=== PATIENT | female | born 1950 | race Caucasian/White ===

== ENCOUNTER 2016-12-12 11:20 | Outpatient (CLI) | payer MEDICARE, OTHER ==
--- NOTE | 2016-12-12 15:55 | Ultrasound Report ---
LEFT BREAST ULTRASOUND: 12/12/2016 CLINICAL INDICATION: Pain, palpable abnormality. TECHNIQUE: Real-time scanning was performed with community service representative static images obtained. FINDINGS: Ultrasound of the palpable region identified by the patient was performed. Prominent subareolar ducts are noted. Skin thickening and diffuse edema is present. No discrete solid mass is identified. IMPRESSION: FINDINGS COMPATIBLE WITH MASTITIS. NO EVIDENT DISCRETE MASS. RECOMMENDATION: FOLLOWUP FOLLOWING APPROPRIATE ANTIBIOTIC THERAPY, TO EXCLUDE AN UNDERLYING LESION. BIRADS CATEGORY 3-PROBABLE BENIGN FINDINGS. JOB #: [id number] EXT JOB #:[id number]
--- NOTE | 2016-12-12 16:40 | Mammography Report ---
DIGITAL DIAGNOSTIC BILATERAL MAMMOGRAM: 12/12/2016 CLINICAL INDICATION: Palpable abnormality left breast, redness, pain. COMPARISON: 08/20/2012, 03/08/2011, , 01/18/2006. TECHNIQUE: Bilateral CC and MLO views, left true lateral view. A marker was placed at the site of pal pable abnormality identified by the patient in the left lower inner breast. FINDINGS: The breasts demonstrate scattered fibroglandular densities bilaterally. Punctate, typicall y benign calcifications are present. Biopsy marker in the left lower inner breast is stable. There is diffuse skin thickening and parenchymal edema in the left breast, compatible with mastitis. No defin ite mammographic abnormality is appreciated at the site of palpable abnormality indicated by the odilon er. Please also refer to left breast ultrasound of the same day. IMPRESSION: SKIN THICKENING AND EDEMA, COMPATIBLE WITH MASTITIS. RECOMMENDATION: FOLLOWUP EVALUATION OF THE LEFT BREAST FOLLOWING APPROPRIATE ANTIBIOTIC THERAPY, TO E XCLUDE AN UNDERLYING MASS LESION. BIRADS CATEGORY 3-PROBABLE BENIGN FINDINGS. STANDARD QUALIFYING STATEMENTS 1. This examination was reviewed with the aid of Computer-Aided Detection (CAD). 2. A negative or benign imaging report should not delay biopsy if clinically suspicious findings are present. Consider surgical consultation if warranted. More than 5% of cancers are not identified by i maging. 3. Dense breasts may obscure an underlying neoplasm. JOB #: [id number] EXT JOB #:[id number]
== END 2016-12-12 11:21 | disposition home or self-care (01) ==
LOC: DI 11:20
PROVIDERS: ATTEND Registered Nurse
DX: N63 Unspecified lump in breast (principal); N64.52 Nipple discharge; N64.4 Mastodynia
CPT/HCPCS: 76642; G0204; 77066

== ENCOUNTER 2017-01-11 18:42 | Emergency (ER) | payer MEDICARE ==
[2017-01-11 18:49] VITALS: BP 165/98
--- NOTE | 2017-01-11 20:48 | ED Physician Documentation ---
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, not related too exertion etc 2) floaters in R vision X 5 days already has an appt with ophtho in another 5 days for same, vision is chronically blurry, she did not bring her glasses so states she cannot do visual acuity no COPPOLA diff speaking hearing numbness weakness etc Review of Systems Constitutional: denies: Fever, Chills Eyes: reports: Other (floaters) Cardiac: denies: Chest pain / pressure Respiratory: denies: Dyspnea GI: denies: Abdominal Pain Endocrine: denies: Easy bruising / bleeding Immunocompromised: denies: Immunocompromised PD PAST MEDICAL HISTORY - Past Medical History Past Medical History: Yes HEENT: Chronic vision loss - Allergies Allergies/Adverse Reactions: Allergies Allergy/AdvReac Type Severity Reaction Status Date / Time No Known Drug Allergies Allergy Verified 01/11/17 18:49 - Social History Does the pt smoke?: No Smoking Status: Never smoker PD ED PE NORMAL - Vitals Vital signs reviewed: Yes - General General: Alert and oriented X 3 - HEENT HEENT: PERRL, EOMI, Other (no field cut, no retinal tear or hemorrhage seen on non dilated fundoscopic exam, globes soft, no TA TTP) - Neck Neck: Supple, no meningeal sign - Cardiac Cardiac: RRR - Respiratory Respiratory: No respiratory distress, Clear bilaterally - Extremities Extremities: Other (mod dilated superifcial veins to alonso upper ext in a thin pt , no limb edema or discoloration, brisk cap refill alonso) - Neuro Neuro: Alert and oriented X 3, tip cutter 2-12 intact, No motor deficit, No sensory deficit Results - Vitals Vitals: Vital Signs - 24 hr 01/11/17 18:46 Temperature 36.3 C L Heart Rate 66 Respiratory 18 Rate Blood Pressure 165/98 H O2 Saturation 98 Oxygen O2 Source Room air PD MEDICAL DECISION MAKING - ED course ED course: veins seems better upon eval - possibly related to pts high BP today suspect floaters are vitreous hemorrhage but emphasized need for full ophtho exam pt verbalized understanding but did not want to wait for BP to be rechceked or dc paper to be printed Departure - Departure Disposition: Home, Self Care Clinical Impression: Vitreous floaters of right eye High blood pressure Qualifiers: Hypertension type: essential hypertension Qualified Code(s): I10 - Essential ( primary) hypertension Condition: Good Instructions: ED Hypertension Poss, Flashes and Floaters Comments: Please follow up with the eye doctor for a full dilated eye exam Return to the ER for worsening vision Also please have your blood pressure rechecked - it was high today
== END 2017-01-11 20:56 | disposition home or self-care (01) ==
LOC: ED 18:42
DX: H43.391 Other vitreous opacities, right eye (principal); R03.0 Elevated blood-pressure reading, without diagnosis of hypertension; H54.7 Unspecified visual loss
CPT/HCPCS: 99283

== ENCOUNTER 2017-09-21 10:20 | Outpatient (CLI) | payer MEDICARE ==
--- NOTE | 2017-09-21 12:59 | Ultrasound Report ---
RIGHT UPPER QUADRANT ULTRASOUND: 09/21/2017 CLINICAL INDICATION: Liver firmness. COMPARISON: Images of the upper abdomen of chest CT of the same day. TECHNIQUE: Real-time scanning was performed with customer counter representative static images obtained. FINDINGS: The liver measures 16 cm. Hepatic echotexture is markedly heterogeneous. No intrahepatic biliary dilatation is seen, and the common bile duct measures 6 mm. The gallbladder is elongated, measuring 13.6 cm. No cholelithiasis is seen. The right kidney measures 9.6 cm, and demonstrates no hydronephrosis. No free fluid is present. IMPRESSION: MARKEDLY HETEROGENEOUS LIVER, WITH SIMILAR FINDINGS ON NONCONTRAST CT OF THE SAME DAY. CONSIDER LIVER MRI FOR FURTHER EVALUATION. TD: 09/21/2017 12:58
--- NOTE | 2017-09-21 13:41 | CT Report ---
CT CHEST WITHOUT CONTRAST FOR LUNG CANCER SCREENIN09/21/2017 CLINICAL INDICATION: A 67-year-old asymptomatic patient with [id number] history of smoking, current smoker, past diagnosis of sarcoidosis. TECHNIQUE: Axial CT images of the chest were obtained without intravenous contrast, using low dose screening technique. COMPARISON: No previous CT is available for comparison. FINDINGS: The heart and great vessels demonstrate mild atherosclerotic calcification. There is hilar and mediastinal lymphadenopathy, with pretracheal nodes measuring up to 13 mm short axis. Some lymph nodes do demonstrate calcification, but others do not. There is a suspicious spiculated nodule in the posterior right upper lobe, measuring 2.0 x 1.2 x 2.9 cm. Underlying emphysematous changes and bronchiectasis are noted. Basilar fibrosis is present. Limited evaluation of upper abdominal structures demonstrates normal adrenal glands. Marked heterogeneity of the liver is noted. Consider liver MRI for further evaluation, given the appearance on ultrasound of the same day. Osseous structures demonstrate degenerative changes. IMPRESSION: 1. 2.9 CM RIGHT UPPER LOBE NODULE WITH SPICULATED MARGINS. CORRELATION WITH PATHOLOGY IS RECOMMENDED. 2. MEDIASTINAL ADENOPATHY, SOME WITH CALCIFICATIONS, BUT THE POSSIBILITY OF METASTATIC DISEASE CANNOT BE EXCLUDED. 3. MARKEDLY HETEROGENEOUS LIVER. GIVEN THE FINDINGS ON ULTRASOUND OF THE SAME DAY, CONSIDER LIVER MRI FOR FURTHER EVALUATION. LUNG RADS CATEGORY 4B, TISSUE SAMPLING AND ADDITIONAL DIAGNOSTIC TESTING RECOMMENDED. CT DOSE REDUCTION STATEMENT In accordance with CT protocol optimization, one or more of the following dose reduction techniques were utilized for this exam: automated exposure control, adjustment of mA and/or KV based on patient size, or use of iterative reconstructive technique. TD: 09/21/2017 13:40
== END 2017-09-21 10:21 | disposition home or self-care (01) ==
LOC: DI 10:20
PROVIDERS: ATTEND Physician Assistant
DX: R19.8 Other specified symptoms and signs involving the digestive system and abdomen (principal); D86.0 Sarcoidosis of lung; F17.200 Nicotine dependence, unspecified, uncomplicated; R91.1 Solitary pulmonary nodule
CPT/HCPCS: 76705; G0297

== ENCOUNTER 2017-10-12 12:59 | Outpatient (CLI) | payer MEDICARE ==
[2017-10-12] MEDS ORDERED: IOPAMIDOL-300 100 ML VIAL ONE (13:19)
[2017-10-12] MEDS ORDERED: IOPAMIDOL-300 50 ML VIAL ONE (13:19)
[2017-10-12 14:18] LABS: CREATININE 0.6 mg/dL (0.4-1.0)
[2017-10-12] MEDS ORDERED: IOPAMIDOL-300 50 ML VIAL PO ONE (14:39)
[2017-10-12] MEDS ORDERED: IOPAMIDOL-300 100 ML VIAL IVP ONE (14:39)
--- NOTE | 2017-10-12 17:40 | CT Report ---
CT CHEST WITH CONTRAST: 10/12/2017 CLINICAL INDICATION: Spiculated lung mass. TECHNIQUE: Axial CT images of the chest were obtained with 100 mL Isovue 300 intravenously. In accordance with CT protocol optimization, one or more of the following dose reduction techniques were utilized for this exam: Automated exposure control, adjustment of mA and/or KV based on patient size, or use of iterative reconstructive technique. COMPARISON: Low dose screening chest CT of 09/21/2017. FINDINGS: The heart and great vessels demonstrate atherosclerotic calcifications. Mediastinal lymphadenopathy persists. No axillary adenopathy is seen. The spiculated mass in the right lateral upper lobe is unchanged, measuring 2.9 x 1.8 x 1.2 cm. No new pulmonary lesion is appreciated. Minimal emphysema is present. No effusion or pneumothorax is seen. Osseous structures demonstrate degenerative changes. IMPRESSION: PERSISTENT SPICULATED MASS IN THE RIGHT UPPER LOBE, SUSPICIOUS FOR PRIMARY MALIGNANCY, WITH MEDIASTINAL ADENOPATHY. BIOPSY IS RECOMMENDED. TD: 10/12/2017 15:39 [facility]
--- NOTE | 2017-10-12 17:42 | CT Report ---
CT ABDOMEN AND PELVIS WITH CONTRAST: 10/12/2017 CLINICAL INDICATION: Abnormal liver on ultrasound. TECHNIQUE: Axial CT images of the abdomen and pelvis were obtained with 100 mL Isovue 300 intravenously as well as oral contrast. In accordance with CT protocol optimization, one or more of the following dose reduction techniques were utilized for this exam: Automated exposure control, adjustment of mA and/or KV based on patient size, or use of iterative reconstructive technique. COMPARISON: Ultrasound 09/21/2017. FINDINGS: The liver again demonstrates a large area of decreased attenuation, with focal increased attenuation in the anterior left lobe. This may represent fatty infiltration with focal fatty sparing, but liver MRI would provide better characterization. The spleen, pancreas, kidneys and adrenal glands are unremarkable. The gallbladder is not dilated. No bowel dilatation, free gas, or free fluid is present. No abdominal adenopathy is seen. PELVIS: The pelvic organs appear unremarkable. No pelvic adenopathy or free fluid is present. Osseous structures demonstrate degenerative changes. IMPRESSION: MARKEDLY HETEROGENEOUS ATTENUATION OF THE LIVER, WHICH MAY REPRESENT DIFFUSE FATTY INFILTRATION WITH FOCAL FATTY SPARING, BUT LIVER MRI WOULD PROVIDE BETTER CHARACTERIZATION. TD: 10/12/2017 15:42
== END 2017-10-12 13:00 | disposition home or self-care (01) ==
LOC: LAB 12:59
PROVIDERS: ATTEND Physician Assistant
DX: R93.2 Abnormal findings on diagnostic imaging of liver and biliary tract (principal); D86.0 Sarcoidosis of lung; R59.0 Localized enlarged lymph nodes; R19.09 Other intra-abdominal and pelvic swelling, mass and lump
CPT/HCPCS: 36415; 71260; 74177; 82565; Q9967

== ENCOUNTER 2018-09-07 12:35 | Outpatient (CLI) | payer MEDICARE ==
[2018-09-07] MEDS ORDERED: IOVERSOL 320 100 ML VIAL IVP ONE (13:28)
[2018-09-07 14:00] LABS: BASOPHILS % (AUTO) 1.3 %; EOSINOPHILS % (AUTO) 1.6 %; HGB - HEMOGLOBIN 15.5 g/dL (12.0-16.0); LYMPHOCYTES % (AUTO) 32.1 %; MEAN CORPUSCULAR HEMOGLOBIN 35.2 pg (27.0-31.0); MEAN CORPUSCULAR HGB CONC 33.8 g/dL (32.0-36.0); MEAN CORPUSCULAR VOLUME 104.1 fL (81.0-99.0); MONOCYTES % (AUTO) 9.6 %; NEUTROPHILS % (AUTO) 55.4 %; PLT - PLATELET COUNT 214 10^3/uL (130-450); RED CELL DISTRIBUTION WIDTH 13.4 % (12.0-15.0); WHITE BLOOD COUNT 5.1 x10^3/uL (4.8-10.8)
[2018-09-07 14:04] LABS: ABNORMAL LYMPHS % (MANUAL) 0 %; BAND NEUTROPHILS % (MANUAL) 0 %
[2018-09-07 14:33] LABS: BASOPHILS # (MANUAL) 0.1 10^3/uL (0-0.1); BASOPHILS % (MANUAL) 1 %; EOSINOPHILS # (MANUAL) 0.1 10^3/uL (0-0.7); LYMPHOCYTES # (MANUAL) 1.9 10^3/uL (1.5-3.5); LYMPHOCYTES % (MANUAL) 32 %; MONOCYTES # (MANUAL) 0.5 10^3/uL (0.0-1.0); NEUTROPHILS # (MANUAL) 2.6 10^3/uL (1.5-6.6); NEUTROPHILS % (MANUAL) 50 %
[2018-09-07 14:34] LABS: DIFFERENTIAL COMMENT MANUAL DIFFERENTIAL; PLATELET ESTIMATE, MANUAL NORMAL (130-450,000) (NORMAL); PLATELET MORPHOLOGY NORMAL APPEARANCE (NORMAL); RBC MORPHOLOGY (MULTIPLE) 1+ MACROCYTOSIS (NORMAL)
== END 2018-09-07 12:36 | disposition home or self-care (01) ==
LOC: DI 12:35
PROVIDERS: ATTEND Physician Assistant
DX: R51 Headache (principal)
CPT/HCPCS: 36415; 85025

== ENCOUNTER 2018-11-26 12:24 | Outpatient (CLI) | payer MEDICARE ==
--- NOTE | 2018-11-26 17:05 | Mammography Report ---
Reason: ABNORMAL MAMMOGRAM Procedure Date: 11/26/2018 Accession Number: [id number] / [id number] Procedure: EDDIE - Diagnostic Dig Bilat CPT Code: FULL RESULT: EXAM: Diagnostic Dig Bilat DATE: 11/26/2018 2:24 PM CLINICAL HISTORY: Diagnostic examination. The patient presents for follow-up of previously noted skin thickening and increased density of the left breast in the setting of clinical mastitis in 2017. TECHNIQUE: (B) - Bilateral CC and MLO views were obtained. COMPARISON: 12/12/2016 through 03/08/2011. PARENCHYMAL PATTERN: (A) - The breast(s) demonstrate(s) scattered fibroglandular densities. FINDINGS: The left breast in the upper outer quadrant near the axillary tail contains an ovoid well defined isodense nodule which is previously seen but now contains a singular coarse calcification and measures 1.1 x 0.5 cm on tomographic left MLO image 21. On prior 2-D mammograms the finding is partially obscured by breast parenchyma which was denser at that time. The finding is further characterized by focused left breast ultrasound which demonstrates a wider than tall well-defined hypoechoic nodule with internal hyperechoic foci consistent with calcification seen on mammogram. Sonographically the finding is position at the 1:00 axis IX cm from the nipple and measures approximately 0.8 x 0.3 cm but clearly corresponds to the finding in shape and location. This is probably benign. There are no suspicious masses, calcifications, or areas of distortion. IMPRESSION: Probably Benign. BI-RADS category 3. RECOMMENDATION: (6MOS) - Recommend 6 month follow-up exam. By ultrasound of the left breast. BI-RADS CATEGORY: (3) - Probably Benign. STANDARD QUALIFYING STATEMENTS: 1. This examination was not reviewed with the aid of Computer-Aided Detection (CAD). 2. A negative or benign imaging report should not preclude biopsy if clinically suspicious findings are present. 3. Dense breasts may obscure an underlying neoplasm. 4. This examination was reviewed with the aid of 3D breast imaging (tomosynthesis).
== END 2018-11-26 12:25 | disposition home or self-care (01) ==
LOC: DI 12:24
PROVIDERS: ATTEND Physician Assistant
DX: R92.8 Other abnormal and inconclusive findings on diagnostic imaging of breast (principal)
CPT/HCPCS: 76642; 77066; G0279; 77062

== ENCOUNTER 2019-08-28 09:18 | Outpatient (CLI) | payer MEDICARE | END 2019-08-28 09:19 | disposition critical access hospital (66) | LOC: EMS 09:18 | PROVIDERS: ATTEND Surgery | DX: R53.1 Weakness (principal); K92.1 Melena; R10.9 Unspecified abdominal pain | CPT/HCPCS: A0425; A0427 ==

== ENCOUNTER 2019-08-28 09:58 | Inpatient (IN) | payer MEDICARE ==
[2019-08-28 10:48] LABS: BASOPHILS % (AUTO) 0.2 %; EOSINOPHILS # (AUTO) 0.1 10^3/uL (0.0-0.7); EOSINOPHILS % (AUTO) 0.9 %; LYMPHOCYTES # (AUTO) 1.6 10^3/uL (1.5-3.5); LYMPHOCYTES % (AUTO) 17.3 %; MEAN CORPUSCULAR HEMOGLOBIN 34.7 pg (27.0-31.0); MEAN CORPUSCULAR HGB CONC 34.1 g/dL (32.0-36.0); MEAN CORPUSCULAR VOLUME 101.5 fL (81.0-99.0); MEAN PLATELET VOLUME 9.9 fL (7.9-10.8); MONOCYTES # (AUTO) 0.9 10^3/uL (0.0-1.0); MONOCYTES % (AUTO) 9.5 %; NEUTROPHILS # (AUTO) 6.4 10^3/uL (1.5-6.6); NEUTROPHILS % (AUTO) 71.7 %; PLT - PLATELET COUNT 196 10^3/uL (130-450); RED BLOOD COUNT 2.02 10^6/uL (4.20-5.40)
[2019-08-28 10:54] LABS: INR 1.6 (0.8-1.2); PT - PROTHROMBIN TIME 17.7 secs (9.9-12.6)
--- NOTE | 2019-08-28 10:54 | ED Physician Documentation ---
History of Present Illness - Stated complaint Stated Complaint: ABD PAIN - Chief complaint Chief Complaint: Abd Pain - History obtained from History obtained from: Patient, EMS - Additonal information Additional information: Patient comes emergency department complaining of generalized weakness today. She states that she fell twice and spent a total of 5 hours on the floor trying to scoot herself get hooked herself up. She states that her legs just give out on her and that it is hard for her to drag herself across the floor to try to pull herself up with something. Patient states a friend came over and called 911 because of the patient's condition. Patient denies hitting her head or getting hurt in any other way during the falls. Patient states that she drinks alcohol on a daily basis and has not seen a doctor in years. She states that she has not been aware of any jaundice. She is not aware of a diagnosis of liver failure. She states she has had a distended abdomen for approximately the past year and that this is steadily gotten worse. She also smokes heavily and has for many years, but is not aware of she is chronically short of breath. Patient denies any fevers or chills recently. No worsening in her cough. No lower extremity edema currently. Patient is not aware of any heart problems other than a mitral valve prolapse. She has never had a history of congestive h eart failure that she knows of. Patient states she lives alone at home. She has not been vomiting lately. No blood in her stools. No other complaints at this time. Review of Systems Ten Systems: 10 systems reviewed and negative Constitutional: reports: Reviewed and negative Eyes: reports: Reviewed and negative Ears: reports: Reviewed and negative Nose: reports: Reviewed and negative Throat: reports: Reviewed and negative Cardiac: reports: Reviewed and negative Respiratory: reports: Reviewed and negative GI: reports: Reviewed and negative : reports: Reviewed and negative Skin: reports: Reviewed and negative Musculoskeletal: reports: Reviewed and negative Neurologic: reports: Generalized weakness Psychiatric: reports: Reviewed and negative Endocrine: reports: Reviewed and negative Immunocompromised: reports: Reviewed and negative PD PAST MEDICAL HISTORY - Past Medical History Past Medical History: Yes Cardiovascular: Valve disorder HEENT: Chronic vision loss Other Past Medical History: sarcoidosis - Past Surgical History Past Surgical History: Yes - Present Medications Home Medications: Ambulatory Orders Medication Instructions Recorded Confirmed Escitalopram Oxalate [Lexapro] 20 mg PO DAILY 08/28/19 08/28/19 Metoprolol Tartrate 25 mg PO BID 08/28/19 08/28/19 - Allergies Allergies/Adverse Reactions: Allergies Allergy/AdvReac Type Severity Reaction Status Date / Time No Known Drug Allergies Allergy Verified 08/28/19 10:17 - Social History Does the pt smoke?: Yes Smoking Status: Current every day smoker Does the pt drink ETOH?: Yes Does the pt have substance abuse?: No PD ED PE NORMAL - Vitals Vital signs reviewed: Yes - General General: Alert and oriented X 3, No acute distress, Other (Patient appears chronically ill.) - HEENT HEENT: Atraumatic, PERRL, EOMI, Moist mucous membranes, Other (Moderate icterus) - Neck Neck: Supple, no meningeal sign - Cardiac Cardiac: RRR, No murmur (1 out of 6 systolic murmur), Strong equal pulses - Respiratory Respiratory: No respiratory distress, Other (Bilateral, faint, scant wheezes. 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9 Eos # (Auto) 0.1 Baso # (Auto) 0.0 Absolute Nucleated RBC 0.00 Nucleated RBC % 0.0 PT 17.7 H INR 1.6 H Sodium 123 L Potassium 3.2 L Chloride 88 L Carbon Dioxide 23 Anion Gap 12.0 BUN 18 Creatinine 1.2 H Estimated GFR (MDRD) 44 L Glucose 96 Lactic Acid Calcium 8.2 L Total Bilirubin 6.5 H AST 71 H ALT 11 Alkaline Phosphatase 97 Ammonia Total Creatine Kinase B-Natriuretic Peptide Total Protein 6.9 Albumin 2.3 L Globulin 4.6 H Albumin/Globulin Ratio 0.5 L Lipase 40 Urine Color Urine Clarity Urine pH Ur Specific [place] Urine Protein Urine Glucose (UA) Urine Ketones Urine Occult Blood Urine Nitrite Urine Bilirubin Urine Urobilinogen Ur Leukocyte Esterase Urine RBC Urine WBC Ur Squamous Epith Cells Urine Bacteria Ur Microscopic Review Urine Culture Comments 08/28/19 08/28/19 08/28/19 10:40 10:40 10:40 WBC RBC Hgb Hct MCV MCH MCHC RDW Plt Count MPV Neut # (Auto) Lymph # (Auto) Holmes # (Auto) Eos # (Auto) Baso # (Auto) Absolute Nucleated RBC Nucleated RBC % PT INR Sodium Potassium Chloride Carbon Dioxide Anion Gap BUN Creatinine Estimated GFR (MDRD) Glucose Lactic Acid 1.4 Calcium Total Bilirubin AST ALT Alkaline Phosphatase Ammonia 14.4 Total Creatine Kinase B-Natriuretic Peptide 1771 H Total Protein Albumin Globulin Albumin/Globulin Ratio Lipase Urine Color Urine Clarity Urine pH Ur Specific [place] Urine Protein Urine Glucose (UA) Urine Ketones Urine Occult Blood Urine Nitrite Urine Bilirubin Urine Urobilinogen Ur Leukocyte Esterase Urine RBC Urine WBC Ur Squamous Epith Cells Urine Bacteria Ur Microscopic Review Urine Culture Comments 08/28/19 08/28/19 10:40 11:00 WBC RBC Hgb Hct MCV MCH MCHC RDW Plt Count MPV Neut # (Auto) Lymph # (Auto) Holmes # (Auto) Eos # (Auto) Baso # (Auto) Absolute Nucleated RBC Nucleated RBC % PT INR Sodium Potassium Chloride Carbon Dioxide Anion Gap BUN Creatinine Estimated GFR (MDRD) Glucose Lactic Acid Calcium Total Bilirubin AST ALT Alkaline Phosphatase Ammonia Total Creatine Kinase 63 B-Natriuretic Peptide Total Protein Albumin Globulin Albumin/Globulin Ratio Lipase Urine Color DARK YELLOW Urine Clarity HAZY Urine pH 5.5 Ur Specific [place] 1.020 Urine Protein NEGATIVE Urine Glucose (UA) NEGATIVE Urine Ketones NEGATIVE Urine Occult Blood TRACE-LYSE Urine Nitrite POSITIVE H Urine Bilirubin NEGATIVE Urine Urobilinogen 0.2 (NORMAL) Ur Leukocyte Esterase NEGATIVE Urine RBC 0-5 Urine WBC 0-3 Ur Squamous Epith Cells RARE Squamous Urine Bacteria Moderate H Ur Microscopic Review INDICATED Urine Culture Comments INDICATED - Rads (name of study) Chest x-ray Radiology: Final report received, EMP read indepedently, See rad report (Final radiologist impression: Mild left pleural effusion and presumed underlying compressive atelectasis. Pneumonia or underlying mass is not excluded. Nodular focal opacification right upper lung corresponding to area of previous spiculated nodular change seen correlation with chest CT would be helpful in further evaluation.) PD MEDICAL DECISION MAKING - ED course Complexity details: reviewed results, re-evaluated patient, considered differential, d/w patient ED course: The patient was worked up with labs, chest x-ray, and urinalysis. She was found to have an elevated bilirubin at 6.5, with mildly elevated transaminases. She was found to have a hemoglobin of 7 and sodium of 123. Her urinalysis was mildly positive with positive nitrite and bacteria, but negative leukocyte esterase and normal white blood cells. The patient was given a dose of Rocephin for this in the emergency department. Her chest x-ray showed some mild atelectasis with a small left pleural effusion, but was on remarkable otherwise. The patient had remained in the upper 80s to low 90s as far as her oxygen saturation, and was placed on 2 L of oxygen per nasal cannula. I did suspect the patient likely has underlying COPD that is undiagnosed. I discussed the case with Dr. Lopez who is the on-call hospitalist, and he did agree to admit the patient to his service. Patient was agreeable to admission. Departure - Departure Disposition: 66 [facility] DC/Xfer Clinical Impression: Generalized weakness, Hyponatremia, Hepatic failure due to alcoholism UTI (urinary tract infection) Qualifiers: Urinary tract infection type: acute cystitis Hematuria presence: without hematuria Qualified Code(s): N30.00 - Acute cystitis without hematuria Anemia Qualifiers: Anemia type: unspecified type Qualified Code(s): D64.9 - Anemia, unspecified Condition: Serious Discharge Date/Time: 08/28/19 12:44
--- NOTE | 2019-08-28 10:56 | XRAY Report ---
Reason: sob Procedure Date: 08/28/2019 Accession Number: [id number] / [id number] Procedure: XR - Chest 1 View X-Ray CPT Code: 42995 Final Report FULL RESULT: EXAM: CHEST RADIOGRAPHY EXAM DATE: 08/28/2019 10:43 AM. CLINICAL HISTORY: Shortness of breath. COMPARISON: 09/17/2010 11:32 AM ABDOMEN/PELVIS W/ 10/12/2017 2:34 PM CHEST W/ 10/12/2017 2:34 PM. TECHNIQUE: 1 view. FINDINGS: Lungs/Pleura: A mild left-sided pleural effusion is seen. Focal somewhat nodular opacification of the right upper lung is also noted. No pneumothorax. Mediastinum: Heart and mediastinal contours are notable for aortic calcification. Other: None. IMPRESSION: 1. Mild left pleural effusion and presumed underlying compressive atelectasis. Pneumonia or underlying mass is not excluded. 2. Nodular focal opacification right upper lung corresponding to area of previous spiculated nodular change seen. Correlation with chest CT could be helpful in further evaluation. RADIA
[2019-08-28 11:01] LABS: ALBUMIN 2.3 g/dL (3.2-5.5); ALBUMIN/GLOBULIN RATIO 0.5 (1.0-2.2); BILIRUBIN,TOTAL 6.5 mg/dL (0.2-1.0); CALCIUM 8.2 mg/dL (8.5-10.3); CREATININE 1.2 mg/dL (0.4-1.0); TOTAL PROTEIN 6.9 g/dL (6.7-8.2)
[2019-08-28 11:08] LABS: CLARITY,URINE HAZY (CLEAR); GLUCOSE, URINE (UA) NEGATIVE (NEGATIVE); KETONES,URINE (UA) NEGATIVE (NEGATIVE); LEUKOCYTE ESTERASE, URINE NEGATIVE (NEGATIVE); NITRITE,URINE POSITIVE (NEGATIVE); OCCULT BLOOD,URINE TRACE-LYSE (NEGATIVE); PH,URINE 5.5 PH (5.0-7.5); PROTEIN,URINE NEGATIVE (NEGATIVE); UROBILINOGEN,URINE 0.2 (NORMAL) E.U./dL (NORMAL)
[2019-08-28 11:13] LABS: BILIRUBIN,URINE NEGATIVE (NEGATIVE); ICTOTEST,URINE NEGATIVE
[2019-08-28 11:28] LABS: BACTERIA,URINE Moderate /HPF (None Seen); RBC,URINE 0-5 /HPF (0-5); SQUAMOUS EPITHELIAL CELL,UR RARE Squamous (<= Few)
[2019-08-28] MEDS ORDERED: cefTRIAXone 2 GM in SODIUM CHLORIDE 0.9% MINIBAG 100 ML IV STA (11:33)
--- NOTE | 2019-08-28 12:19 | PHARMACY PROGRESS NOTE ---
- Best Possible Medication History Admit Date and Time: 08/28/19 1151 Processed by: Pharmacy Medication History completed: Yes Secondary Source(s): Physician records, Pharmacy records, Insurance records As the person ultimately responsible for medication therapy, providers are able to order a medication from an existing home medication list in [facility] via the "Reconcile Routine" prior to Confirmation of that medication by vp software support. Such practice is discouraged except when the physician, in their clinical judgment, deems that a medical need exists for a medication without regard to previous use.
[2019-08-28] MEDS ORDERED: SODIUM CHLORIDE 0.9% 500 ML IV ONE (13:21)
[2019-08-28] MEDS ORDERED: diphenhydrAMINE 25 MG CAPSULE PO PRN (13:21)
[2019-08-28] MEDS ORDERED: LEVALBUTEROL 1.25 MG/3 ML NEB INH PRN (13:25)
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
[2019-08-28 13:50] LABS: MUDS CUTOFF CONCENTRATIONS CUTOFF CONC BELOW:
[2019-08-28] MEDS ORDERED: NS W/20 MEQ KCL 1,000 ML IV SCH (14:00)
[2019-08-28 14:04] LABS: AMPHETAMINE SCREEN,URINE NEGATIVE (NEGATIVE); BENZODIAZEPINES SCREEN, URINE NEGATIVE (NEGATIVE); COCAINE SCREEN URINE NEGATIVE (NEGATIVE); METHADONE SCREEN, URINE NEGATIVE (NEGATIVE); METHAMPHETAMINES SCREEN, URINE NEGATIVE (NEGATIVE); OPIATE SCREEN, URINE NEGATIVE (NEGATIVE); OXYCODONE SCREEN, URINE NEGATIVE (NEGATIVE); PROPOXYPHENE SCREEN, URINE NEGATIVE (NEGATIVE); TRICYCLIC ANTIDEPRESSANT,URINE NEGATIVE (NEGATIVE)
[2019-08-28] MEDS: SODIUM CHLORIDE FLUSH 0.9% 10 ML SYRINGE IVP SCH (16:49)
[2019-08-28] MEDS: guaiFENesin 600 MG TABLET PO SCH (20:42)
[2019-08-28] MEDS: MEROPENEM 1 GM in SODIUM CHLORIDE 0.9% MINIBAG 100 ML IV SCH (20:42)
--- NOTE | 2019-08-29 00:08 | Ultrasound Report ---
Reason: flank pain, abdominal pain Procedure Date: 08/28/2019 Accession Number: [id number] / [id number] Procedure: US - Retroperitoneal CPT Code: Final Report FULL RESULT: EXAM: RENAL ULTRASOUND EXAM DATE: 08/28/2019 08:49 PM. CLINICAL HISTORY: Flank pain, abdominal pain. COMPARISON: None. TECHNIQUE: Real-time scanning was performed with static images obtained. FINDINGS: Right Kidney: 9.3 x 4.9 x 5.6 cm. Normal echotexture with no stones, contour-deforming masses, or hydronephrosis. Left Kidney: 9.0 x 4.6 x 5.1 cm. Normal echotexture with no stones, contour-deforming masses, or hydronephrosis. Bladder: Bilateral jets nonvisualized. The prevoid bladder volume was 321. cc. Patient unable to void. Other: Abdominal ascites in all 4 quadrants. IMPRESSION: 1. No evidence for renal calculi. No evidence for hydronephrosis. 2. Enlarged urinary bladder. 3. Ascites. RADIA
[2019-08-29] MEDS: SODIUM CHLORIDE FLUSH 0.9% 10 ML SYRINGE IVP SCH ×3 (02:29→17:38)
[2019-08-29 05:01] LABS: BASOPHILS % (AUTO) 0.5 %; EOSINOPHILS # (AUTO) 0.1 10^3/uL (0.0-0.7); EOSINOPHILS % (AUTO) 1.5 %; HGB - HEMOGLOBIN 8.4 g/dL (12.0-16.0); LYMPHOCYTES # (AUTO) 1.8 10^3/uL (1.5-3.5); LYMPHOCYTES % (AUTO) 21.3 %; MEAN CORPUSCULAR HEMOGLOBIN 35.3 pg (27.0-31.0); MEAN CORPUSCULAR HGB CONC 35.9 g/dL (32.0-36.0); MEAN CORPUSCULAR VOLUME 98.3 fL (81.0-99.0); MEAN PLATELET VOLUME 9.6 fL (7.9-10.8); MONOCYTES # (AUTO) 0.9 10^3/uL (0.0-1.0); MONOCYTES % (AUTO) 10.6 %; NEUTROPHILS # (AUTO) 5.6 10^3/uL (1.5-6.6); NEUTROPHILS % (AUTO) 65.6 %; PLT - PLATELET COUNT 174 10^3/uL (130-450); RED BLOOD COUNT 2.38 10^6/uL (4.20-5.40); RED CELL DISTRIBUTION WIDTH 16.5 % (12.0-15.0); WHITE BLOOD COUNT 8.6 x10^3/uL (4.8-10.8)
[2019-08-29 05:07] LABS: INR 1.6 (0.8-1.2); PT - PROTHROMBIN TIME 17.9 secs (9.9-12.6)
[2019-08-29 05:12] LABS: ALBUMIN 2.1 g/dL (3.2-5.5); ALBUMIN/GLOBULIN RATIO 0.5 (1.0-2.2); BILIRUBIN,TOTAL 6.8 mg/dL (0.2-1.0); CALCIUM 7.8 mg/dL (8.5-10.3); CREATININE 1.1 mg/dL (0.4-1.0); MAGNESIUM 1.6 mg/dL (1.7-2.8); PHOSPHORUS 2.6 mg/dL (2.5-4.6); TOTAL PROTEIN 6.6 g/dL (6.7-8.2)
[2019-08-29] MEDS ORDERED: LORazepam 1 MG TABLET PO PRN (07:02)
[2019-08-29] MEDS ORDERED: LORazepam 2 MG/ML VIAL IVP PRN (07:02)
[2019-08-29] MEDS ORDERED: LEVALBUTEROL 1.25 MG/3 ML NEB INH PRN (07:22)
[2019-08-29] MEDS ORDERED: POTASSIUM CHLORIDE 10 MEQ CAPSULE PO SCH (07:30)
[2019-08-29] MEDS ORDERED: METOPROLOL SUCCINATE 25 MG TABLET PO SCH (08:00)
[2019-08-29] MEDS: MAGNESIUM OXIDE 400 MG TABLET PO SCH ×2 (09:31→16:45)
[2019-08-29] MEDS: PRENATAL VITAMIN TABLET PO SCH (09:32)
[2019-08-29] MEDS: guaiFENesin 600 MG TABLET PO SCH ×2 (09:50→20:50)
[2019-08-29] MEDS: MEROPENEM 1 GM in SODIUM CHLORIDE 0.9% MINIBAG 100 ML IV SCH (09:50)
[2019-08-29] MEDS: NICOTINE 14 MG PATCH TOP SCH (10:44)
[2019-08-29] MEDS: ESCITALOPRAM 10 MG TABLET PO SCH (10:44)
[2019-08-29] MEDS ORDERED: METOPROLOL SUCCINATE 25 MG TABLET PO ONE (11:00)
[2019-08-29] MEDS: THIAMINE INJ 500 MG in SODIUM CHLORIDE 0.9% 50 ML IV SCH ×2 (12:35→20:50)
[2019-08-29] MEDS ORDERED: FUROSEMIDE 40 MG/4 ML VIAL IVP SCH (13:00)
--- NOTE | 2019-08-29 14:54 | PROVIDER PROGRESS NOTE ---
Subjective - Prog Note Date Prog Note Date: 08/29/19 Prog Note Time: 14:47 - Subjective Pt reports feeling: Improved Subjective: Sangeeta has somewhat uncontrolled periods of anxiety today, that resolve with lorazepam, she is scoring low on the CIWA scale and considered to be in active liver failure. Current Medications - Current Medications Current Medications: Active Medications: Escitalopram Oxalate (Lexapro) 20 mg PO DAILY [facility] Guaifenesin (Mucinex) 600 mg PO BID [facility] Ceftriaxone Sodium 2 gm/ (Sodium Chloride) 100 mls @ 200 mls/hr IV DAILY REED Thiamine HCl 500 mg/ Sodium (Chloride) 55 mls @ 100 mls/hr IV TID REED Albumin Human (Albuminar-25) 12.5 gm in 50 mls @ 50 mls/hr IV ONCE ONE Lactobacillus Rhamnosus (Culturelle) 1 cap PO DAILY [facility] Levalbuterol HCl (Xopenex) 1.25 mg INH RTQ4H PRN Lorazepam (Ativan) 1 mg PO Q1H PRN; Protocol Lorazepam (Ativan Inj (Vial)) 1 mg IVP Q30M PRN; Protocol Magnesium Oxide (Mag Ox) 400 mg PO BIDWM [facility] Metoprolol Succinate (Toprol Xl) 25 mg PO BIDWM [facility] Nicotine (Nicoderm) 1 patch TOP DAILY [facility] Multivit/Folic Acid/Iron (Trinatal Rx 1) 1 tab PO DAILYWM [facility] Spironolactone (Aldactone) 25 mg PO DAILY REED Objective - Vital Signs/Intake & Output Reviewed Vital Signs: Yes Vital Signs: Vital Signs x48h Temp Pulse Pulse Resp BP Pulse Ox 08/29/19 11:25 36.8 C 102 H 18 108/68 98 08/29/19 08:54 36.5 C 96 18 96 08/29/19 08:30 96 18 08/29/19 07:48 36.5 C 98 17 107/75 96 Intake & Output: Intake & Output 08/26/19 08/27/19 08/28/19 08/29/19 23:59 23:59 23:59 23:59 Intake Total 1642.5 1154.5 Output Total 200 900 Balance 1442.5 254.5 - Objective General Appearance: positive: Alert, Moderate distress, Anxious, Lethargic Eyes Bilateral: positive: No lid inflammation Eyes: OU Scleral icterus, OU Other (mild bilateral scleral edema) ENT: positive: Pharyngeal erythema, Oral lesions, Dry mucous membranes Neck: positive: Trachea midline, Lymphadenopathy (R), Lymphadenopathy (L), Stiff neck Respiratory: positive: Chest non-tender, No respiratory distress, Breath sounds nml, Other (coarse crackles, bilaterally, shallow breathing and using accessory muscles) Cardiovascular: positive: Regular rate & rhythm, No gallop, Tachycardia, Systolic murmur, Diastolic murmur, Decreased pulse(s) Peripheral Pulses: 1+ Radial (R), 1+ Radial (L) Abdomen: positive: Nml bowel sounds, Tenderness (more tender on bilateral lower abdomen, worse with deep palpation), Guarding, Other (obese, soft) Back: positive: Nml inspection Skin: positive: No rash, Warm, Dry, Pallor, Other (severe jaundice, nearly with a green hue) Extremities: positive: Pedal edema (BLE pitting edema noted in feet and ankles), Joint swelling Neurologic/Psychiatric: positive: Weakness, Sensory loss, Slurred/abnml speech (sluggish speech, times of extreme anxiety), Depressed mood/affect (flat affect, sometimes has a good sense of humor), Other (baseline memory loss, alcoholic dementia) Reflexes: Bicep (R): 2+, Bicep (L): 2+ - Lab Results Fish Bones: 08/29/19 04:40 08/29/19 04:40 Other Labs: Lab Results x24hrs 08/29/19 08/29/19 08/29/19 Range/Units 04:40 04:40 04:40 WBC 8.6 (4.8-10.8) x10^3/uL RBC 2.38 L (4.20-5.40) 10^6/uL Hgb 8.4 L (12.0-16.0) g/dL Hct 23.4 L (37.0-47.0) % MCV 98.3 (81.0-99.0) fL MCH 35.3 H (27.0-31.0) pg MCHC 35.9 (32.0-36.0) g/dL RDW 16.5 H (12.0-15.0) % Plt Count 174 (130-450) 10^3/uL MPV 9.6 (7.9-10.8) fL Neut # (Auto) 5.6 (1.5-6.6) 10^3/uL Lymph # (Auto) 1.8 (1.5-3.5) 10^3/uL Brown # (Auto) 0.9 (0.0-1.0) 10^3/uL Eos # (Auto) 0.1 (0.0-0.7) 10^3/uL Baso # (Auto) 0.0 (0.0-0.1) 10^3/uL Absolute Nucleated RBC 0.00 x10^3/uL Nucleated RBC % 0.0 /100WBC PT 17.9 H (9.9-12.6) secs INR 1.6 H (0.8-1.2) Sodium 126 L (135-145) mmol/L Potassium 3.1 L (3.5-5.0) mmol/L Chloride 93 L (101-111) mmol/L Carbon Dioxide 24 (21-32) mmol/L Anion Gap 9.0 (6-13) BUN 14 (6-20) mg/dL Creatinine 1.1 H (0.4-1.0) mg/dL Estimated GFR (MDRD) 49 L (>89) Glucose 92 (70-100) mg/dL Calcium 7.8 L (8.5-10.3) mg/dL Phosphorus 2.6 (2.5-4.6) mg/dL Magnesium 1.6 L (1.7-2.8) mg/dL Total Bilirubin 6.8 H (0.2-1.0) mg/dL GGT 103 H (8-38) IU/L AST 66 H (10-42) IU/L ALT 11 (10-60) IU/L Alkaline Phosphatase 107 (42-121) IU/L Total Protein 6.6 L (6.7-8.2) g/dL Albumin 2.1 L (3.2-5.5) g/dL Globulin 4.5 H (2.1-4.2) g/dL Albumin/Globulin Ratio 0.5 L (1.0-2.2) Blood Type Blood Type Recheck Antibody Screen Crossmatch IS Only 08/28/19 08/28/19 08/28/19 Range/Units 21:25 14:12 10:40 WBC (4.8-10.8) x10^3/uL RBC (4.20-5.40) 10^6/uL Hgb 9.0 L (12.0-16.0) g/dL Hct 25.2 L (37.0-47.0) % MCV (81.0-99.0) fL MCH (27.0-31.0) pg MCHC (32.0-36.0) g/dL RDW (12.0-15.0) % Plt Count (130-450) 10^3/uL MPV (7.9-10.8) fL Neut # (Auto) (1.5-6.6) 10^3/uL Lymph # (Auto) (1.5-3.5) 10^3/uL Brown # (Auto) (0.0-1.0) 10^3/uL Eos # (Auto) (0.0-0.7) 10^3/uL Baso # (Auto) (0.0-0.1) 10^3/uL Absolute Nucleated RBC x10^3/uL Nucleated RBC % /100WBC PT (9.9-12.6) secs INR (0.8-1.2) Sodium (135-145) mmol/L Potassium (3.5-5.0) mmol/L Chloride (101-111) mmol/L Carbon Dioxide (21-32) mmol/L Anion Gap (6-13) BUN (6-20) mg/dL Creatinine (0.4-1.0) mg/dL Estimated GFR (MDRD) (>89) Glucose (70-100) mg/dL Calcium (8.5-10.3) mg/dL Phosphorus (2.5-4.6) mg/dL Magnesium (1.7-2.8) mg/dL Total Bilirubin (0.2-1.0) mg/dL GGT (8-38) IU/L AST (10-42) IU/L ALT (10-60) IU/L Alkaline Phosphatase (42-121) IU/L Total Protein (6.7-8.2) g/dL Albumin (3.2-5.5) g/dL Globulin (2.1-4.2) g/dL Albumin/Globulin Ratio (1.0-2.2) Blood Type B NEGATIVE Blood Type Recheck B NEGATIVE Antibody Screen NEGATIVE Crossmatch IS Only See Detail ABX Reporting Has patient been on IV antibiotics over the past 48 hours?: Yes Assessment/Plan - Problem List (1) Hepatic failure due to alcoholism Impression: -Elevated LFTs, AST 66, ALT 11, Alk phos 107, total bili 6.8, sodium 126, GGT 106 -Enlarged abdominal girth, moderate to severe jaundice, bilateral scleral yellowing -Longstanding known alcohol daily use for depression, agoraphobia, anxiety disorder, fibromyalgia, and migraines -MELD score is 29, giving the patient a 19.6% estimated 3-month mortality -Patient does not agree to cessation -Admits to drinking (1/2) of a 1/5 of vodka daily, (1/5 = 750 mL) -A nice boy Morris delivers this along with groceries -Social work consult -Given multiple medical issues, patient may not recover, still struggling with multiple issues today Hyponatremia -Serum sodium ape072, now 126 -Unknown what her baseline sodium is -Increases risk with acute liver failure -Appears dehydrated on exam, also with anemia -Status post IV fluids -Continue routine labs UTI (urinary tract infection) -Urine sample shows acute infection -Started on IV rocephin in the ED, and continues -Received a few doses of meropenem, but after pharmacy review, likely not a strain of ESBL -Await final cultures, continue indwelling persaud for acute urinary retention likely due to this infection ADRIANNE (acute kidney injury) -Unknown baseline serum creatinine -Creatinine on admit was elevated at 1.2, BUN 18, GFR 44 -Albumin is low at 2.3, now 2.1 -Getting one dose of IV albumin due to echo report noting intravascular depletion -Likely cause is acute infection with dehydration -Kidney US showed no hydronephrosis, no stones or obstruction as the cause of UTI or ADRIANNE -1 unit PRBCs on 08/27, gentle IV fluids overnight now stopped, indwelling persaud for suspected urinary retention and for diuresis -Continue routine labs Acute hepatic encephalopathy -Patient is suffering from an acute infection, but longstanding ETOH use is likely the culprit with dehydration -High dose IV thiamine today for a 3-day course -CIWA protocol started this AM -Monitor for improvement Acute blood loss anemia -Unknown baseline H/H, was 7.0/20.5, MCV 101.5 upon admission, now 8.4/23.4 -Patient admits to "dripping blood" from her rectum, occult stool was negative today -Status post 1 unit PRBCs on 08/28/2019, which improved H/H to 9.0/25.2 -Patient has been symptomatic with multiple falls, more sleeping, and extremely dizzy when attempting to get out of bed -Baseline anemia likely related to longstanding daily alcohol use GI bleeding -Based on patient's story, patient admits to "dripping" which happens at least weekly for the past 2-3 months -If hemorrhoids are visible, could try some cream -She denies cramping, hemorrhoids, or large bloody stools, but has had chronic diarrhea for years -Treat acute illness, monitor for bleeding, consult general surgery if an immediate need arises -Guiac stool was negative today, repeat daily Jaundice -Patient denies prior issues with turning yellow -Spoke with Amena Doty's PCP RN who notes that the patient was last seen in October 2017, and had some slight jaundice at that time -Also with dark urine, bilateral scleral yellowing, and today her jaundice has a hint of green tones, pale skin -Total bili is elevated at 6.8, up from 6.5, likely due to liver failure -Monitor for improvement, Anorexia -The patient admitted to not eating for several days prior to coming to the ED -She appears cachetic, malnourished, and profoundly jaundice with a slight green hue due to ETOH use -Nutrition consulted, encouraged PO intake Fall -Patient admits to at least 2 times of falling in which she did not have a way to call for help, so was able to scoot herself to a phone -Her cat was the most concerned, and was actually annoying -Likely due to overall poor health, acute illness and liver failure Agoraphobia -Per PCP notes, this has been a major issue -ETOH abuse, major depressive disorder, generalized anxiety disorder -Patient has food delivered by a boy named Morris, a close friend Jaja (also her POA), which allows her to stay in her home -She also has 2 dogs, a cat and a parrot to keep her company Medical non-compliance -Likely a consequence of her issues listed above Alcohol abuse, daily use -Patient admits to at least 1/2 to a full 1/5 of vodka daily (1/5 = 750 mL) -No interest in stopping -Denies prior attempts to stopping -Nursing spoke to Jaja, the patient's POA who had concerns of her alcohol use and withdrawal -Newly orderred CIWA protocol Tobacco dependence -Patient rolls her own cigarettes, but notes this is way more than 1 PPD -Started at age 16, never been able to stop more than a few weeks at a time -Offer nicotine patch daily COPD with emphysema -No recent PNA, smoker since age 16 -No inhaler use -Recently short of breath, but also very anemic -Now status post 1 unit PRBCs, but with intermittent shortness of breath -Exacerbating factor of uncontrolled anxiety related early ETOH W/D -Respiratory cares as needed, Xopenex PRN Back pain -Acute on chronic, treat pain as needed, ok for a 2000 mg daily max on tylenol HTN (hypertension) -Takes metoprolol at home -Now changed to succinate with split dosing -Light B/Ps, as expected with liver failure -Lasix 40mg IV x1 today for shortness of breath, but became tachycardic -Starting spironolactone in the AM for finding pulmonary HTN on echo Pulmonary hypertension -Echo shows an elevated RVSP at rest of 41 mmHg -Normal sized RA and RV -Likely due to life long smoking -Encourage cessation, PCP to order an outpatient sleep study to rule out CARLOS ALBERTO as a culprit Diastolic dysfunction, heart failure -Echo from today notes a grade 1 DD, preserved EF of 60-65%, not mentioned likely left ventricular hypertrophy -Likely uncontrolled tachycardia, untreated HTN as one potential cause, as well as longstanding ETOH abuse -Beta meghan is most indicated in the treatment of this Generalized weakness -Leading to recurrent falls, likely due to this illness -PT/OT after improvement -Social work for possible placement
[2019-08-29] MEDS ORDERED: ALBUMIN 25% 12.5 GM/50 ML VIAL IV ONE (16:00)
[2019-08-29] MEDS: LACTOBACILLUS RHAMNOSUS GG CAPSULE PO SCH (16:45)
[2019-08-29] MEDS: METOPROLOL SUCCINATE 25 MG TABLET PO SCH (16:45)
[2019-08-29] MEDS: cefTRIAXone 2 GM in SODIUM CHLORIDE 0.9% MINIBAG 100 ML IV SCH (17:31)
[2019-08-30] MEDS: SODIUM CHLORIDE FLUSH 0.9% 10 ML SYRINGE IVP SCH ×3 (00:44→16:36)
[2019-08-30] MEDS ORDERED: SODIUM CHLORIDE 0.9% 50 ML IV ONE (04:56)
[2019-08-30] MEDS ORDERED: THIAMINE 100 MG/1 ML 2 ML MDV ONE ×2 (05:38→05:40)
[2019-08-30] MEDS: THIAMINE INJ 500 MG in SODIUM CHLORIDE 0.9% 50 ML IV SCH ×3 (06:09→21:22)
[2019-08-30] MEDS: SODIUM CHLORIDE FLUSH 0.9% 10 ML SYRINGE IVP PRN (06:12)
[2019-08-30] MEDS ORDERED: POTASSIUM CHLORIDE 20 MEQ TABLET PO SCH (06:57)
[2019-08-30] MEDS: cefTRIAXone 2 GM in SODIUM CHLORIDE 0.9% MINIBAG 100 ML IV SCH (09:13)
[2019-08-30] MEDS: MAGNESIUM OXIDE 400 MG TABLET PO SCH ×2 (09:17→16:36)
[2019-08-30] MEDS: SPIRONOLACTONE 25 MG TABLET PO SCH (09:17)
[2019-08-30] MEDS: LACTOBACILLUS RHAMNOSUS GG CAPSULE PO SCH (09:17)
[2019-08-30] MEDS: PRENATAL VITAMIN TABLET PO SCH (09:17)
[2019-08-30] MEDS: NICOTINE 14 MG PATCH TOP SCH (09:18)
[2019-08-30] MEDS: METOPROLOL SUCCINATE 25 MG TABLET PO SCH ×2 (09:18→16:36)
[2019-08-30] MEDS: guaiFENesin 600 MG TABLET PO SCH ×2 (09:18→21:22)
[2019-08-30] MEDS: POTASSIUM CHLOR 10 MEQ/100 ML 10 MEQ/100 ML BAG IV SCH ×2 (09:56→11:18)
[2019-08-30] MEDS: ESCITALOPRAM 10 MG TABLET PO SCH (09:59)
[2019-08-30 11:44] LABS: BASOPHILS # (AUTO) 0.1 10^3/uL (0.0-0.1); BASOPHILS % (AUTO) 0.7 %; EOSINOPHILS # (AUTO) 0.2 10^3/uL (0.0-0.7); EOSINOPHILS % (AUTO) 1.8 %; LYMPHOCYTES # (AUTO) 1.8 10^3/uL (1.5-3.5); LYMPHOCYTES % (AUTO) 21.5 %; MEAN CORPUSCULAR HEMOGLOBIN 35.3 pg (27.0-31.0); MEAN CORPUSCULAR HGB CONC 34.5 g/dL (32.0-36.0); MEAN CORPUSCULAR VOLUME 102.5 fL (81.0-99.0); MEAN PLATELET VOLUME 9.4 fL (7.9-10.8); MONOCYTES # (AUTO) 0.6 10^3/uL (0.0-1.0); MONOCYTES % (AUTO) 7.3 %; NEUTROPHILS # (AUTO) 5.8 10^3/uL (1.5-6.6); NEUTROPHILS % (AUTO) 68.3 %; PLT - PLATELET COUNT 196 10^3/uL (130-450); RED BLOOD COUNT 2.83 10^6/uL (4.20-5.40); RED CELL DISTRIBUTION WIDTH 17.1 % (12.0-15.0); WHITE BLOOD COUNT 8.5 x10^3/uL (4.8-10.8)
[2019-08-30 11:51] LABS: INR 1.4 (0.8-1.2); PT - PROTHROMBIN TIME 15.9 secs (9.9-12.6)
[2019-08-30 11:57] LABS: ALBUMIN 2.5 g/dL (3.2-5.5); ALBUMIN/GLOBULIN RATIO 0.5 (1.0-2.2); BILIRUBIN,TOTAL 4.7 mg/dL (0.2-1.0); CALCIUM 8.5 mg/dL (8.5-10.3); CREATININE 1.1 mg/dL (0.4-1.0); MAGNESIUM 1.7 mg/dL (1.7-2.8); PHOSPHORUS 2.4 mg/dL (2.5-4.6); TOTAL PROTEIN 7.6 g/dL (6.7-8.2)
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
--- NOTE | 2019-08-30 17:42 | PROVIDER PROGRESS NOTE ---
Subjective - Prog Note Date Prog Note Date: 08/30/19 Prog Note Time: 17:39 - Subjective Pt reports feeling: Improved Subjective: Sangeeta states she feels much better, but continues to have weakness, low back pain and is chilly much of the time. She is looking forward to her time with Mary Shook in the coming months and thankful for her visit. She gave consent to update her friend Jaja with her medical status. Current Medications - Current Medications Current Medications: Active Medications: Escitalopram Oxalate (Lexapro) 20 mg PO DAILY [facility] Guaifenesin (Mucinex) 600 mg PO BID [facility] Ceftriaxone Sodium 2 gm/ (Sodium Chloride) 100 mls @ 200 mls/hr IV DAILY [facility] Thiamine HCl 500 mg/ Sodium (Chloride) 55 mls @ 100 mls/hr IV TID [facility] Lactobacillus Rhamnosus (Culturelle) 1 cap PO DAILY [facility] Levalbuterol HCl (Xopenex) 1.25 mg INH RTQ4H PRN Lorazepam (Ativan) 1 mg PO Q1H PRN; Protocol Lorazepam (Ativan Inj (Vial)) 1 mg IVP Q30M PRN; Protocol Magnesium Oxide (Mag Ox) 400 mg PO BIDWM [facility] Metoprolol Succinate (Toprol Xl) 25 mg PO BIDWM [facility] Nicotine (Nicoderm) 1 patch TOP DAILY [facility] Multivit/Folic Acid/Iron (Trinatal Rx 1) 1 tab PO DAILYWM [facility] Spironolactone (Aldactone) 25 mg PO DAILY [facility] Objective - Vital Signs/Intake & Output Reviewed Vital Signs: Yes Vital Signs: Vital Signs x48h Temp Pulse Pulse Resp BP BP Pulse Ox 08/30/19 16:22 36.6 C 93 18 103/63 96 08/30/19 13:15 91 101/65 08/30/19 11:40 102 H 97 Intake & Output: Intake & Output 08/27/19 08/28/19 08/29/19 08/30/19 23:59 23:59 23:59 23:59 Intake Total 1642.5 1459.5 1110 Output Total 200 1700 250 Balance 1442.5 -240.5 860 - Objective General Appearance: positive: Alert, Mild distress, Anxious Eyes Bilateral: positive: No lid inflammation Eyes: OU Scleral icterus ENT: positive: Pharynx nml, No signs of dehydration, Other ([place]) Neck: positive: No JVD, Trachea midline Respiratory: positive: Chest non-tender, No respiratory distress, Other (diminished, bilaterally) Cardiovascular: positive: Regular rate & rhythm, Tachycardia, Systolic murmur, Decreased pulse(s) Peripheral Pulses: 1+ Radial (R), 1+ Radial (L) Abdomen: positive: Non-tender, Nml bowel sounds, Other (rounded, soft) Back: positive: Nml inspection Skin: positive: No rash, Warm, Dry, Other (jaundice, pale, a hint of green) Extremities: positive: Non-tender, No pedal edema, Joint swelling Neurologic/Psychiatric: positive: Oriented x3, CN's nml (2-12), Motor nml, Sensation nml, Weakness, Sensory loss, Depressed mood/affect (flat) Reflexes: Bicep (R): 2+, Bicep (L): 2+ - Lab Results Fish Bones: 08/30/19 11:35 08/30/19 11:35 Other Labs: Lab Results x24hrs 08/30/19 08/30/19 08/30/19 Range/Units 11:53 11:35 11:35 WBC (4.8-10.8) x10^3/uL RBC (4.20-5.40) 10^6/uL Hgb (12.0-16.0) g/dL Hct (37.0-47.0) % MCV (81.0-99.0) fL MCH (27.0-31.0) pg MCHC (32.0-36.0) g/dL RDW (12.0-15.0) % Plt Count (130-450) 10^3/uL MPV (7.9-10.8) fL Neut # (Auto) (1.5-6.6) 10^3/uL Lymph # (Auto) (1.5-3.5) 10^3/uL [place] # (Auto) (0.0-1.0) 10^3/uL Eos # (Auto) (0.0-0.7) 10^3/uL Baso # (Auto) (0.0-0.1) 10^3/uL Absolute Nucleated RBC x10^3/uL Nucleated RBC % /100WBC PT (9.9-12.6) secs INR (0.8-1.2) Sodium 130 L (135-145) mmol/L Potassium 3.3 L (3.5-5.0) mmol/L Chloride 96 L (101-111) mmol/L Carbon Dioxide 25 (21-32) mmol/L Anion Gap 9.0 (6-13) BUN 13 (6-20) mg/dL Creatinine 1.1 H (0.4-1.0) mg/dL Estimated GFR (MDRD) 49 L (>89) Glucose 103 H (70-100) mg/dL Calcium 8.5 (8.5-10.3) mg/dL Phosphorus 2.4 L (2.5-4.6) mg/dL Magnesium 1.7 (1.7-2.8) mg/dL Total Bilirubin 4.7 H (0.2-1.0) mg/dL AST 78 H (10-42) IU/L ALT 11 (10-60) IU/L Alkaline Phosphatase 122 H (42-121) IU/L Ammonia 25.0 (7-35) umol/L B-Natriuretic Peptide 438 H (5-100) pg/mL Total Protein 7.6 (6.7-8.2) g/dL Albumin 2.5 L (3.2-5.5) g/dL Globulin 5.1 H (2.1-4.2) g/dL Albumin/Globulin Ratio 0.5 L (1.0-2.2) 08/30/19 08/30/19 Range/Units 11:35 11:35 WBC 8.5 (4.8-10.8) x10^3/uL RBC 2.83 L (4.20-5.40) 10^6/uL Hgb 10.0 L (12.0-16.0) g/dL Hct 29.0 L (37.0-47.0) % MCV 102.5 H (81.0-99.0) fL MCH 35.3 H (27.0-31.0) pg MCHC 34.5 (32.0-36.0) g/dL RDW 17.1 H (12.0-15.0) % Plt Count 196 (130-450) 10^3/uL MPV 9.4 (7.9-10.8) fL Neut # (Auto) 5.8 (1.5-6.6) 10^3/uL Lymph # (Auto) 1.8 (1.5-3.5) 10^3/uL [place] # (Auto) 0.6 (0.0-1.0) 10^3/uL Eos # (Auto) 0.2 (0.0-0.7) 10^3/uL Baso # (Auto) 0.1 (0.0-0.1) 10^3/uL Absolute Nucleated RBC 0.00 x10^3/uL Nucleated RBC % 0.0 /100WBC PT 15.9 H (9.9-12.6) secs INR 1.4 H (0.8-1.2) Sodium (135-145) mmol/L Potassium (3.5-5.0) mmol/L Chloride (101-111) mmol/L Carbon Dioxide (21-32) mmol/L Anion Gap (6-13) BUN (6-20) mg/dL Creatinine (0.4-1.0) mg/dL Estimated GFR (MDRD) (>89) Glucose (70-100) mg/dL Calcium (8.5-10.3) mg/dL Phosphorus (2.5-4.6) mg/dL Magnesium (1.7-2.8) mg/dL Total Bilirubin (0.2-1.0) mg/dL AST (10-42) IU/L ALT (10-60) IU/L Alkaline Phosphatase (42-121) IU/L Ammonia (7-35) umol/L B-Natriuretic Peptide (5-100) pg/mL Total Protein (6.7-8.2) g/dL Albumin (3.2-5.5) g/dL Globulin (2.1-4.2) g/dL Albumin/Globulin Ratio (1.0-2.2) ABX Reporting Has patient been on IV antibiotics over the past 48 hours?: Yes Assessment/Plan - Problem List (1) Hepatic failure due to alcoholism Impression: Elevated LFTs, AST 78, ALT 11, Alk phos 122, total bili 4.7, sodium 130, GGT 106 -Enlarged abdominal girth, moderate to severe jaundice, bilateral scleral yellowing -Longstanding known alcohol daily use for depression, agoraphobia, anxiety disorder, fibromyalgia, and migraines -MELD score is 29, giving the patient a 19.6% estimated 3-month mortality -Patient does not agree to cessation -Admits to drinking (1/2) of a 1/5 of vodka daily, (1/5 = 750 mL) -No withdrawal symptoms, no confusion -Treating with high dose IV thiamin 500mg TID x3 days -A regulo boy Morris delivers this along with groceries -Social work consult & Palliative care consulted, AUDREY Prabhakar already met with her today -Prognosis is still poor overall, but more hopeful with her improved LFTs Hyponatremia -Serum sodium [id number], now 130 -Increases risk with acute liver failure -Status post IV fluids -Now continues on daily spironolactone -Continue routine labs UTI (urinary tract infection) -Urine sample shows acute infection, final culture has several options for oral antibiotics -Negative kidney US for stones or obstruction -Continues on IV rocephin -Indwelling persaud until more medically stable ADRIANNE (acute kidney injury) -Unknown baseline serum creatinine -Creatinine today is 1.1, BUN 13, GFR 49 -Albumin is low 2.5, improved -Status post IV albumin on 08/28, hypotension -Likely cause is acute infection with dehydration -Kidney US showed no hydronephrosis, no stones or obstruction as the cause of UTI or ADRIANNE -1 unit PRBCs on 08/27, indwelling persaud for suspected urinary retention and for diuresis -Continue routine labs Acute hepatic encephalopathy -Patient is suffering from an acute infection, but longstanding ETOH use is likely the culprit with dehydration -High dose IV thiamine for a 3-day course -CIWA stopped for very low scores -Monitor for improvement Acute blood loss anemia -Unknown baseline H/H, was 7.0/20.5, MCV 101.5 upon admission, now 02/17 -Patient admits to "dripping blood" from her rectum, occult stool was negative on 08/28, will repeat daily -Status post 1 unit PRBCs on 08/28/2019, which improved H/H to 9.0/25.2 -Patient has been symptomatic with multiple falls, more sleeping, and extremely dizzy when attempting to get out of bed -Baseline anemia likely related to longstanding daily alcohol use GI bleeding -Based on patient's story, patient admits to "dripping" which happens at least weekly for the past 2-3 months -If hemorrhoids are visible, could try some cream -She denies cramping, hemorrhoids, or large bloody stools, but has had chronic diarrhea for years -Treat acute illness, monitor for bleeding, consult general surgery if an immediate need arises -Guiac stool was negative today, repeat daily Jaundice -Patient denies prior issues with turning yellow -Spoke with Amena Doty's PCP RN who notes that the patient was last seen in October 2017, and had some slight jaundice at that time -Also with dark urine, bilateral scleral yellowing, and today her jaundice has a hint of green tones, pale skin -Total bili is elevated at 6.8, up from 6.5, likely due to liver failure -Monitor for improvement, Anorexia -The patient admitted to not eating for several days prior to coming to the ED -She appears cachetic, malnourished, and profoundly jaundice with a slight green hue due to ETOH use -Nutrition consulted, encouraged PO intake Fall -Patient admits to at least 2 times of falling in which she did not have a way to call for help, so was able to scoot herself to a phone -Her cat was the most concerned, and was actually annoying -Likely due to overall poor health, acute illness and liver failure Agoraphobia -Per PCP notes, this has been a major issue -ETOH abuse, major depressive disorder, generalized anxiety disorder -Patient has food delivered by a boy named Morris, a close friend Jaja (also her POA), which allows her to stay in her home -She also has 2 dogs, a cat and a parrot to keep her company Medical non-compliance -Likely a consequence of her issues listed above Alcohol abuse, daily use -Patient admits to at least 1/2 to a full 1/5 of vodka daily (1/5 = 750 mL) -No interest in stopping -Denies prior attempts to stopping -Nursing spoke to Jaja, the patient's POA who had concerns of her alcohol use and withdrawal -Newly orderred CIRI protocol Tobacco dependence -Patient rolls her own cigarettes, but notes this is way more than 1 PPD -Started at age 16, never been able to stop more than a few weeks at a time -Offer nicotine patch daily COPD with emphysema -No recent PNA, smoker since age 16 -No inhaler use -Recently short of breath, but also very anemic -Now status post 1 unit PRBCs, but with intermittent shortness of breath -Exacerbating factor of uncontrolled anxiety related early ETOH W/D -Respiratory cares as needed, Xopenex PRN Back pain -Acute on chronic, treat pain as needed, ok for a 2000 mg daily max on tylenol HTN (hypertension) -Takes metoprolol at home -Now changed to succinate with split dosing -Light B/Ps, as expected with liver failure -Continues on spironolactone for pulmonary HTN on echo Pulmonary hypertension -Echo shows an elevated RVSP at rest of 41 mmHg -Normal sized RA and RV -Likely due to life long smoking -Encourage cessation, PCP to order an outpatient sleep study to rule out CARLOS ALBERTO as a culprit Diastolic dysfunction, heart failure -Echo notes a grade 1 DD, preserved EF of 60-65%, not mentioned likely left ventricular hypertrophy -Likely uncontrolled tachycardia, untreated HTN as one potential cause, as well as longstanding ETOH abuse -Beta meghan is most indicated in the treatment of this Generalized weakness -Leading to recurrent falls, likely due to this illness -PT/OT after improvement -Social work for possible placement
[2019-08-31] MEDS: SODIUM CHLORIDE FLUSH 0.9% 10 ML SYRINGE IVP SCH ×3 (00:54→16:57)
[2019-08-31 05:19] LABS: BASOPHILS % (AUTO) 0.5 %; EOSINOPHILS # (AUTO) 0.2 10^3/uL (0.0-0.7); EOSINOPHILS % (AUTO) 2.1 %; LYMPHOCYTES # (AUTO) 2.3 10^3/uL (1.5-3.5); MEAN CORPUSCULAR HGB CONC 33.8 g/dL (32.0-36.0); MEAN CORPUSCULAR VOLUME 100.9 fL (81.0-99.0); MEAN PLATELET VOLUME 9.5 fL (7.9-10.8); MONOCYTES % (AUTO) 12.5 %; NEUTROPHILS # (AUTO) 4.4 10^3/uL (1.5-6.6); NEUTROPHILS % (AUTO) 55.6 %; PLT - PLATELET COUNT 166 10^3/uL (130-450); RED BLOOD COUNT 2.35 10^6/uL (4.20-5.40); RED CELL DISTRIBUTION WIDTH 16.8 % (12.0-15.0); WHITE BLOOD COUNT 7.9 x10^3/uL (4.8-10.8)
[2019-08-31 05:27] LABS: INR 1.5 (0.8-1.2); PT - PROTHROMBIN TIME 16.4 secs (9.9-12.6)
[2019-08-31 05:33] LABS: ALBUMIN 2.1 g/dL (3.2-5.5); ALBUMIN/GLOBULIN RATIO 0.5 (1.0-2.2); ALKALINE PHOSPHATASE 101 IU/L (42-121); ALT ALANINE AMINOTRANSFERASE < 10 IU/L (10-60); AST ASPARTATE AMINOTRANSFERASE 62 IU/L (10-42); BILIRUBIN,TOTAL 4.1 mg/dL (0.2-1.0); BUN - BLOOD UREA NITROGEN 13 mg/dL (6-20); CARBON DIOXIDE - CO2 23 mmol/L (21-32); CHLORIDE 98 mmol/L (101-111); CREATININE 1.2 mg/dL (0.4-1.0); GLUCOSE 97 mg/dL (70-100); MAGNESIUM 1.7 mg/dL (1.7-2.8); PHOSPHORUS 2.4 mg/dL (2.5-4.6); SODIUM 129 mmol/L (135-145); TOTAL PROTEIN 6.3 g/dL (6.7-8.2)
[2019-08-31] MEDS: THIAMINE INJ 500 MG in SODIUM CHLORIDE 0.9% 50 ML IV SCH ×3 (06:39→21:23)
[2019-08-31] MEDS ORDERED: POTASSIUM CHLORIDE 20 MEQ TABLET PO SCH (07:00)
[2019-08-31] MEDS: LACTOBACILLUS RHAMNOSUS GG CAPSULE PO SCH (08:40)
[2019-08-31] MEDS: PRENATAL VITAMIN TABLET PO SCH (08:40)
[2019-08-31] MEDS: guaiFENesin 600 MG TABLET PO SCH ×2 (08:40→21:23)
[2019-08-31] MEDS: cefTRIAXone 2 GM in SODIUM CHLORIDE 0.9% MINIBAG 100 ML IV SCH (08:40)
[2019-08-31] MEDS: METOPROLOL SUCCINATE 25 MG TABLET PO SCH ×2 (08:40→16:57)
[2019-08-31] MEDS: ESCITALOPRAM 10 MG TABLET PO SCH (08:40)
[2019-08-31] MEDS: SPIRONOLACTONE 25 MG TABLET PO SCH (08:40)
[2019-08-31] MEDS: MAGNESIUM OXIDE 400 MG TABLET PO SCH ×2 (08:40→16:57)
[2019-08-31] MEDS: NICOTINE 14 MG PATCH TOP SCH (08:41)
--- NOTE | 2019-08-31 13:39 | DISCHARGE TRANSFER SUMMARY ---
Transfer Summary Condition at Discharge: Serious - ALLERGIES Allergies/Adverse Reactions: Allergies Allergy/AdvReac Type Severity Reaction Status Date / Time No Known Drug Allergies Allergy Verified 08/28/19 10:17 - MEDICATIONS Home Medications: Ambulatory Orders Medication Instructions Recorded Confirmed Escitalopram Oxalate [Lexapro] 20 mg PO DAILY 08/28/19 08/28/19 Metoprolol Tartrate 25 mg PO BID 08/28/19 08/28/19 - LABS Result Diagrams: 08/31/19 04:40 08/31/19 04:40
--- NOTE | 2019-08-31 13:42 | PROVIDER PROGRESS NOTE ---
Subjective - Prog Note Date Prog Note Date: 08/31/19 Prog Note Time: 13:40 - Subjective Pt reports feeling: Improved (Denies complaints today) Current Medications - Current Medications Current Medications: Active Medications Escitalopram Oxalate (Lexapro) 20 mg PO DAILY [facility] Last Admin: 08/31/19 08:40 Dose: 20 mg Guaifenesin (Mucinex) 600 mg PO BID [facility] Last Admin: 08/31/19 08:40 Dose: 600 mg Ceftriaxone Sodium 2 gm/ (Sodium Chloride) 100 mls @ 200 mls/hr IV DAILY [facility] Last Infusion: 08/31/19 09:31 Dose: Infused Thiamine HCl 500 mg/ Sodium (Chloride) 55 mls @ 100 mls/hr IV TID [facility] Stop: 09/01/19 11:59 Last Infusion: 08/31/19 07:34 Dose: Infused Lactobacillus Rhamnosus (Culturelle) 1 cap PO DAILY [facility] Last Admin: 08/31/19 08:40 Dose: 1 cap Levalbuterol HCl (Xopenex) 1.25 mg INH RTQ4H PRN PRN Reason: SHORTNESS OR AIR/WHEEZING Last Admin: 08/29/19 08:43 Dose: 1.25 mg Lorazepam (Ativan) 1 mg PO Q1H PRN; Protocol PRN Reason: CIWA > 8 Lorazepam (Ativan Inj (Vial)) 1 mg IVP Q30M PRN; Protocol PRN Reason: CIWA >8 Last Admin: 08/29/19 12:26 Dose: 1 mg Magnesium Oxide (Mag Ox) 400 mg PO BIDWM [facility] Last Admin: 08/31/19 08:40 Dose: 400 mg Metoprolol Succinate (Toprol Xl) 25 mg PO BIDWM [facility] Last Admin: 08/31/19 08:40 Dose: 25 mg Nicotine (Nicoderm) 1 patch TOP DAILY [facility] Last Admin: 08/31/19 08:41 Dose: 1 patch Multivit/Folic Acid/Iron (Trinatal Rx 1) 1 tab PO DAILYWM [facility] Last Admin: 08/31/19 08:40 Dose: 1 tab Sodium Chloride (Normal Saline Flush 0.9%) 10 ml IVP PRN PRN PRN Reason: NEEDED PER PROVIDER ORDERS Last Admin: 08/30/19 06:12 Dose: 10 ml Sodium Chloride (Normal Saline Flush 0.9%) 10 ml IVP 0100,0900,1700 [facility] Last Admin: 08/31/19 08:41 Dose: 10 ml Spironolactone (Aldactone) 25 mg PO DAILY [facility] Last Admin: 08/31/19 08:40 Dose: 25 mg Escitalopram Oxalate [Lexapro] 20 mg PO DAILY 08/28/19 Metoprolol Tartrate 25 mg PO BID 08/28/19 Objective - Vital Signs/Intake & Output Reviewed Vital Signs: Yes Vital Signs: Vital Signs x48h Temp Pulse Resp BP Pulse Ox 08/31/19 08:00 36.8 C 89 18 108/69 88 L Intake & Output: Intake & Output 08/28/19 08/29/19 08/30/19 08/31/19 23:59 23:59 23:59 23:59 Intake Total 1642.5 1459.5 1215 215 Output Total 200 1700 350 276 Balance 1442.5 -240.5 865 -61 - Objective General Appearance: positive: No acute distress Eyes Bilateral: negative: No scleral icterus Respiratory: positive: Chest non-tender, No respiratory distress, Breath sounds nml Cardiovascular: positive: Regular rate & rhythm, No gallop, Systolic murmur Peripheral Pulses: 2+ Radial (R) Abdomen: positive: Non-tender, Nml bowel sounds. negative: No distention, Guarding, Rebound, Abnml bowel sounds Skin: positive: Other (Jaundice) Neurologic/Psychiatric: positive: Oriented x3, CN's nml (2-12) - Lab Results Fish Bones: 08/31/19 04:40 08/31/19 04:40 Other Labs: Lab Results x24hrs 08/31/19 08/31/19 08/31/19 Range/Units 06:30 04:40 04:40 WBC (4.8-10.8) x10^3/uL RBC (4.20-5.40) 10^6/uL Hgb (12.0-16.0) g/dL Hct (37.0-47.0) % MCV (81.0-99.0) fL MCH (27.0-31.0) pg MCHC (32.0-36.0) g/dL RDW (12.0-15.0) % Plt Count (130-450) 10^3/uL MPV (7.9-10.8) fL Neut # (Auto) (1.5-6.6) 10^3/uL Lymph # (Auto) (1.5-3.5) 10^3/uL [place] # (Auto) (0.0-1.0) 10^3/uL Eos # (Auto) (0.0-0.7) 10^3/uL Baso # (Auto) (0.0-0.1) 10^3/uL Absolute Nucleated RBC x10^3/uL Nucleated RBC % /100WBC PT (9.9-12.6) secs INR (0.8-1.2) Sodium 129 L (135-145) mmol/L Potassium 3.3 L (3.5-5.0) mmol/L Chloride 98 L (101-111) mmol/L Carbon Dioxide 23 (21-32) mmol/L Anion Gap 8.0 (6-13) BUN 13 (6-20) mg/dL Creatinine 1.2 H (0.4-1.0) mg/dL Estimated GFR (MDRD) 44 L (>89) Glucose 97 (70-100) mg/dL Calcium 8.0 L (8.5-10.3) mg/dL Phosphorus 2.4 L (2.5-4.6) mg/dL Magnesium 1.7 (1.7-2.8) mg/dL Total Bilirubin 4.1 H (0.2-1.0) mg/dL AST 62 H (10-42) IU/L ALT < 10 L (10-60) IU/L Alkaline Phosphatase 101 (42-121) IU/L Ammonia 31.0 (7-35) umol/L Total Protein 6.3 L (6.7-8.2) g/dL Albumin 2.1 L (3.2-5.5) g/dL Globulin 4.2 (2.1-4.2) g/dL Albumin/Globulin Ratio 0.5 L (1.0-2.2) Stl Occult Blood (IFOB) NEGATIVE (NEGATIVE) 08/31/19 08/31/19 Range/Units 04:40 04:40 WBC 7.9 (4.8-10.8) x10^3/uL RBC 2.35 L (4.20-5.40) 10^6/uL Hgb 8.0 L (12.0-16.0) g/dL Hct 23.7 L (37.0-47.0) % MCV 100.9 H (81.0-99.0) fL MCH 34.0 H (27.0-31.0) pg MCHC 33.8 (32.0-36.0) g/dL RDW 16.8 H (12.0-15.0) % Plt Count 166 (130-450) 10^3/uL MPV 9.5 (7.9-10.8) fL Neut # (Auto) 4.4 (1.5-6.6) 10^3/uL Lymph # (Auto) 2.3 (1.5-3.5) 10^3/uL [place] # (Auto) 1.0 (0.0-1.0) 10^3/uL Eos # (Auto) 0.2 (0.0-0.7) 10^3/uL Baso # (Auto) 0.0 (0.0-0.1) 10^3/uL Absolute Nucleated RBC 0.00 x10^3/uL Nucleated RBC % 0.0 /100WBC PT 16.4 H (9.9-12.6) secs INR 1.5 H (0.8-1.2) Sodium (135-145) mmol/L Potassium (3.5-5.0) mmol/L Chloride (101-111) mmol/L Carbon Dioxide (21-32) mmol/L Anion Gap (6-13) BUN (6-20) mg/dL Creatinine (0.4-1.0) mg/dL Estimated GFR (MDRD) (>89) Glucose (70-100) mg/dL Calcium (8.5-10.3) mg/dL Phosphorus (2.5-4.6) mg/dL Magnesium (1.7-2.8) mg/dL Total Bilirubin (0.2-1.0) mg/dL AST (10-42) IU/L ALT (10-60) IU/L Alkaline Phosphatase (42-121) IU/L Ammonia (7-35) umol/L Total Protein (6.7-8.2) g/dL Albumin (3.2-5.5) g/dL Globulin (2.1-4.2) g/dL Albumin/Globulin Ratio (1.0-2.2) Stl Occult Blood (IFOB) (NEGATIVE) Assessment/Plan - Problem List (1) Hepatic failure due to alcoholism Impression: Impression: -Enlarged abdominal girth, moderate to severe jaundice, bilateral scleral Icterus - TBili trending down -Longstanding known alcohol daily use for depression, agoraphobia, anxiety disorder, fibromyalgia, and migraines -MELD score is 29, giving the patient a 19.6% estimated 3-month mortality -Patient does not agree to cessation -Admits to drinking (1/2) of a 1/5 of vodka daily, (1/5 = 750 mL) -No withdrawal symptoms, no confusion -Treating with high dose IV thiamin 500mg TID x3 days, To be completed for 1220 -Social work consult & Palliative care consulted, AUDREY Prabhakar already met with her On 08/30/2019 -Patient is willing to engage with palliative care at discharge Hyponatremia -Improving initially to 130, now down to 129, relatively stable and likely to be at her chronic level UTI (urinary tract infection) -Urine culture shows pansensitive E. coli DC Rocephin, start Keflex ADRIANNE (acute kidney injury) -Unknown baseline serum creatinine -Creatinine stable in the low 1 range, GFR stable in the mid 40 range -Likely cause is acute infection with dehydration -Kidney US showed no hydronephrosis, no stones or obstruction as the cause of UTI or ADRIANNE Acute hepatic encephalopathy -Patient is suffering from an acute infection, but longstanding ETOH use is likely the culprit with dehydration -High dose IV thiamine for a 3-day course -CIWA stopped for very low scores -Making improvements daily, But not likely to make a full recovery Acute blood loss anemia -Unknown baseline H/H, was 7.0/20.5, MCV 101.5 upon admission, now 02/17 -Patient admits to "dripping blood" from her rectum, occult stool was negative on 08/28, will repeat daily -Status post 1 unit PRBCs on 08/28/2019, which improved H/H to 9.0/25.2 -Patient has been symptomatic with multiple falls, more sleeping, and extremely dizzy when attempting to get out of bed -Baseline anemia likely related to longstanding daily alcohol use GI bleeding - Self-reported bright red blood per rectum intermittently for several months, Typically small amounts -She denies cramping, hemorrhoids, or large bloody stools, but has had chronic diarrhea for years -Significant drop in the H&H overnight from 10.0/29.to 8.0/23.7, Though on 08/29/2019, 2 days prior, H&H were 8.4 and 23.4 respectively - Admitted limited goals of care, with palliative pending, continue to monitor closely prior to any intervention unless clearly indicated Anorexia -The patient admitted to not eating for several days prior to coming to the ED -She appears cachetic, malnourished, and profoundly jaundice with a slight green hue due to ETOH use -Nutrition consulted, encouraged PO intake Fall -Patient admits to at least 2 times of falling in which she did not have a way to call for help, so was able to scoot herself to a phone -Her cat was the most concerned, and was actually annoying -Likely due to overall poor health, acute illness and liver failure Agoraphobia -Per PCP notes, this has been a major issue -ETOH abuse, major depressive disorder, generalized anxiety disorder -Patient has food delivered by a boy named Morris, a close friend Jaja (also her POA), which allows her to stay in her home -She also has 2 dogs, a cat and a parrot to keep her company Medical non-compliance -Likely a consequence of her issues listed above Alcohol abuse, daily use -Patient admits to at least 1/2 to a full 1/5 of vodka daily (1/5 = 750 mL) -No interest in stopping -Denies prior attempts to stopping -Nursing spoke to Jaja, the patient's POA who had concerns of her alcohol use and withdrawal -Newly orderred CIWA protocol Tobacco dependence -Patient rolls her own cigarettes, but notes this is way more than 1 PPD -Started at age 16, never been able to stop more than a few weeks at a time -Offer nicotine patch daily COPD with emphysema -No recent PNA, smoker since age 16 -No inhaler use -Recently short of breath, but also very anemic -Now status post 1 unit PRBCs, but with intermittent shortness of breath -Exacerbating factor of uncontrolled anxiety related early ETOH W/D -Respiratory cares as needed, Xopenex PRN Back pain -Acute on chronic, treat pain as needed, ok for a 2000 mg daily max on tylenol HTN (hypertension) -Takes metoprolol at home -Now changed to succinate with split dosing -Light B/Ps, as expected with liver failure -Continues on spironolactone for pulmonary HTN on echo Pulmonary hypertension -Echo shows an elevated RVSP at rest of 41 mmHg -Normal sized RA and RV -Likely due to life long smoking -Encourage cessation, PCP to order an outpatient sleep study to rule out CARLOS ALBERTO as a culprit Diastolic dysfunction, heart failure -Echo notes a grade 1 DD, preserved EF of 60-65%, not mentioned likely left ventricular hypertrophy -Likely uncontrolled tachycardia, untreated HTN as one potential cause, as well as longstanding ETOH abuse -Beta meghan is most indicated in the treatment of this Generalized weakness -Leading to recurrent falls, likely due to this illness -PT/OT reccomends SNF (She may need a negative Covid-19 test for this) -Social work for possible placement
[2019-08-31] MEDS ORDERED: THIAMINE INJ 500 MG in SODIUM CHLORIDE 0.9% 50 ML IV SCH (14:00)
[2019-08-31] MEDS: cephALEXin 250 MG CAPSULE PO SCH (18:14)
[2019-08-31] MEDS: SODIUM CHLORIDE FLUSH 0.9% 10 ML SYRINGE IVP PRN (21:23)
[2019-09-01] MEDS: SODIUM CHLORIDE FLUSH 0.9% 10 ML SYRINGE IVP SCH ×4 (00:20→23:56)
[2019-09-01] MEDS: cephALEXin 250 MG CAPSULE PO SCH ×3 (00:20→11:31)
[2019-09-01] MEDS: THIAMINE INJ 500 MG in SODIUM CHLORIDE 0.9% 50 ML IV SCH (06:04)
[2019-09-01] MEDS: SPIRONOLACTONE 25 MG TABLET PO SCH (08:27)
[2019-09-01] MEDS: MAGNESIUM OXIDE 400 MG TABLET PO SCH ×2 (08:27→17:07)
[2019-09-01] MEDS: PRENATAL VITAMIN TABLET PO SCH (08:27)
[2019-09-01] MEDS: NICOTINE 14 MG PATCH TOP SCH (08:27)
[2019-09-01] MEDS: LACTOBACILLUS RHAMNOSUS GG CAPSULE PO SCH (08:27)
[2019-09-01] MEDS: ESCITALOPRAM 10 MG TABLET PO SCH (08:27)
[2019-09-01] MEDS: guaiFENesin 600 MG TABLET PO SCH ×2 (08:27→22:02)
[2019-09-01] MEDS: METOPROLOL SUCCINATE 25 MG TABLET PO SCH ×2 (08:29→17:08)
--- NOTE | 2019-09-01 15:19 | PROVIDER PROGRESS NOTE ---
Subjective - Prog Note Date Prog Note Date: 09/01/19 Prog Note Time: 15:14 - Subjective Pt reports feeling: No change (Feels fine, denies anxiety to me) Current Medications - Current Medications Current Medications: Active Medications Cephalexin (Keflex) 500 mg PO Q6HR [facility] Stop: 09/01/19 17:59 Last Admin: 09/01/19 11:31 Dose: 500 mg Escitalopram Oxalate (Lexapro) 20 mg PO DAILY [facility] Last Admin: 09/01/19 08:27 Dose: 20 mg Guaifenesin (Mucinex) 600 mg PO BID [facility] Last Admin: 09/01/19 08:27 Dose: 600 mg Lactobacillus Rhamnosus (Culturelle) 1 cap PO DAILY [facility] Last Admin: 09/01/19 08:27 Dose: 1 cap Levalbuterol HCl (Xopenex) 1.25 mg INH RTQ4H PRN PRN Reason: SHORTNESS OR AIR/WHEEZING Last Admin: 08/29/19 08:43 Dose: 1.25 mg Lorazepam (Ativan) 1 mg PO Q1H PRN; Protocol PRN Reason: CIWA > 8 Lorazepam (Ativan Inj (Vial)) 1 mg IVP Q30M PRN; Protocol PRN Reason: CIWA >8 Last Admin: 08/29/19 12:26 Dose: 1 mg Magnesium Oxide (Mag Ox) 400 mg PO BIDWM [facility] Last Admin: 09/01/19 08:27 Dose: 400 mg Metoprolol Succinate (Toprol Xl) 25 mg PO BIDWM [facility] Last Admin: 09/01/19 08:29 Dose: Not Given Nicotine (Nicoderm) 1 patch TOP DAILY [facility] Last Admin: 09/01/19 08:27 Dose: 1 patch Multivit/Folic Acid/Iron (Trinatal Rx 1) 1 tab PO DAILYWM [facility] Last Admin: 09/01/19 08:27 Dose: 1 tab Sodium Chloride (Normal Saline Flush 0.9%) 10 ml IVP PRN PRN PRN Reason: NEEDED PER PROVIDER ORDERS Last Admin: 08/31/19 21:23 Dose: 10 ml Sodium Chloride (Normal Saline Flush 0.9%) 10 ml IVP 0100,0900,1700 [facility] Last Admin: 09/01/19 06:05 Dose: 10 ml Spironolactone (Aldactone) 25 mg PO DAILY [facility] Last Admin: 09/01/19 08:27 Dose: 25 mg Escitalopram Oxalate [Lexapro] 20 mg PO DAILY 08/28/19 Metoprolol Tartrate 25 mg PO BID 08/28/19 Objective - Vital Signs/Intake & Output Vital Signs: Vital Signs x48h Temp Pulse Resp BP Pulse Ox 09/01/19 07:50 36.4 C L 88 20 82/54 L 94 Intake & Output: Intake & Output 08/29/19 08/30/19 08/31/19 09/01/19 23:59 23:59 23:59 23:59 Intake Total 1459.5 1215 545 875 Output Total 1700 350 426 150 Balance -240.5 865 119 725 - Objective General Appearance: positive: No acute distress Eyes Bilateral: negative: No scleral icterus Respiratory: positive: Chest non-tender, No respiratory distress, Breath sounds nml Cardiovascular: positive: Regular rate & rhythm, No murmur, No gallop Abdomen: positive: No organomegaly, Nml bowel sounds, Tenderness. negative: No distention Skin: positive: Other (Jaundice) Extremities: positive: Pedal edema Neurologic/Psychiatric: positive: CN's nml (2-12) - Lab Results Fish Bones: 08/31/19 04:40 08/31/19 04:40 Assessment/Plan - Problem List (1) Hepatic failure due to alcoholism Impression: Impression: -Enlarged abdominal girth, moderate to severe jaundice, bilateral scleral Icterus - TBili trending down -Longstanding known alcohol daily use for depression, agoraphobia, anxiety disorder, fibromyalgia, and migraines -MELD score is 29, giving the patient a 19.6% estimated 3-month mortality -Patient does not agree to cessation -Admits to drinking (1/2) of a 1/5 of vodka daily, (1/5 = 750 mL) -No withdrawal symptoms, no confusion -Treating with high dose IV thiamin 500mg TID x3 days, To be completed for 1220 -Social work consult & Palliative care consulted, AUDREY Prabhakar already met with her On 08/30/2019 -Patient is willing to engage with palliative care at discharge Hyponatremia -Improving initially to 130, now down to 129, relatively stable and likely to be at her chronic level UTI (urinary tract infection) -Urine culture shows pansensitive E. coli DC Rocephin, start Keflex ADRIANNE (acute kidney injury) -Unknown baseline serum creatinine -Creatinine stable in the low 1 range, GFR stable in the mid 40 range -Likely cause is acute infection with dehydration -Kidney US showed no hydronephrosis, no stones or obstruction as the cause of UTI or ADRIANNE Acute hepatic encephalopathy -Patient is suffering from an acute infection, but longstanding ETOH use is likely the culprit with dehydration -High dose IV thiamine for a 3-day course -CIWA stopped for very low scores -Making improvements daily, But not likely to make a full recovery Acute blood loss anemia -Unknown baseline H/H, was 7.0/20.5, MCV 101.5 upon admission, now 02/17 -Patient admits to "dripping blood" from her rectum, occult stool was negative on 08/28, will repeat daily -Status post 1 unit PRBCs on 08/28/2019, which improved H/H to 9.0/25.2 -Patient has been symptomatic with multiple falls, more sleeping, and extremely dizzy when attempting to get out of bed -Baseline anemia likely related to longstanding daily alcohol use GI bleeding - Self-reported bright red blood per rectum intermittently for several months, Typically small amounts -She denies cramping, hemorrhoids, or large bloody stools, but has had chronic diarrhea for years -Significant drop in the H&H overnight from 10.0/29.to 8.0/23.7, Though on 08/29/2019, 2 days prior, H&H were 8.4 and 23.4 respectively - Admitted limited goals of care, with palliative pending, continue to monitor closely prior to any intervention unless clearly indicated Anorexia -The patient admitted to not eating for several days prior to coming to the ED -She appears cachetic, malnourished, and profoundly jaundice with a slight green hue due to ETOH use -Nutrition consulted, encouraged PO intake Fall -Patient admits to at least 2 times of falling in which she did not have a way to call for help, so was able to scoot herself to a phone -Her cat was the most concerned, and was actually annoying -Likely due to overall poor health, acute illness and liver failure Agoraphobia -Per PCP notes, this has been a major issue -ETOH abuse, major depressive disorder, generalized anxiety disorder -Patient has food delivered by a boy named Morris, a close friend Jaja (also her POA), which allows her to stay in her home -She also has 2 dogs, a cat and a parrot to keep her company Medical non-compliance -Likely a consequence of her issues listed above Alcohol abuse, daily use -Patient admits to at least 1/2 to a full 1/5 of vodka daily (1/5 = 750 mL) -No interest in stopping -Denies prior attempts to stopping -Nursing spoke to Jaja, the patient's POA who had concerns of her alcohol use and withdrawal -Newly orderred CIWA protocol Tobacco dependence -Patient rolls her own cigarettes, but notes this is way more than 1 PPD -Started at age 16, never been able to stop more than a few weeks at a time -Offer nicotine patch daily COPD with emphysema -No recent PNA, smoker since age 16 -No inhaler use -Recently short of breath, but also very anemic -Now status post 1 unit PRBCs, but with intermittent shortness of breath -Exacerbating factor of uncontrolled anxiety related early ETOH W/D -Respiratory cares as needed, Xopenex PRN Back pain -Acute on chronic, treat pain as needed, ok for a 2000 mg daily max on tylenol HTN (hypertension) -Takes metoprolol at home -Now changed to succinate with split dosing -Light B/Ps, as expected with liver failure -Continues on spironolactone for pulmonary HTN on echo Pulmonary hypertension -Echo shows an elevated RVSP at rest of 41 mmHg -Normal sized RA and RV -Likely due to life long smoking -Encourage cessation, PCP to order an outpatient sleep study to rule out CARLOS ALBERTO as a culprit Diastolic dysfunction, heart failure -Echo notes a grade 1 DD, preserved EF of 60-65%, not mentioned likely left ventricular hypertrophy -Likely uncontrolled tachycardia, untreated HTN as one potential cause, as well as longstanding ETOH abuse -Beta meghan is most indicated in the treatment of this Generalized weakness -Leading to recurrent falls, likely due to this illness -PT/OT reccomends SNF (She may need a negative Covid-19 test for this) -Social work for possible placement
[2019-09-02] MEDS: PRENATAL VITAMIN TABLET PO SCH (07:58)
[2019-09-02] MEDS: MAGNESIUM OXIDE 400 MG TABLET PO SCH (07:58)
[2019-09-02] MEDS: SODIUM CHLORIDE FLUSH 0.9% 10 ML SYRINGE IVP SCH (07:59)
[2019-09-02] MEDS: ESCITALOPRAM 10 MG TABLET PO SCH (09:17)
[2019-09-02] MEDS: LACTOBACILLUS RHAMNOSUS GG CAPSULE PO SCH (09:17)
[2019-09-02] MEDS: guaiFENesin 600 MG TABLET PO SCH (09:17)
[2019-09-02] MEDS: NICOTINE 14 MG PATCH TOP SCH (09:18)
--- NOTE | 2019-09-02 10:16 | Discharge Plan ---
Discharge Plan Problem Reviewed?: Yes Disposition: 03 [facility] DC/Xfer Condition: Fair Prescriptions: Magnesium Oxide [Mag Ox] 400 mg PO DAILY #30 tablet Metoprolol Tartrate [Lopressor] 12.5 mg PO DAILY #15 tablet Nicotine 7 mg Patch [Nicoderm] 1 each TOP Q24H #14 patch Vitamin [Trinatal Rx 1] 1 tab PO DAILYWM #30 tablet Spironolactone 12.5 mg PO DAILYWM #15 tablet Instruction Topics: Magnesium Hydroxide oral suspension, Nicotine skin patches, Metoprolol tablets, Spironolactone tablets, Anemia, Kidney Probs, Kidney Function, Sarcoidosis Pulmonary Health Concerns: Chronic liver disease - palliative care following Plan of Treatment: Cont supportive care Care Goals: Comfort Assessment: Poor prognosis No Smoking: If you smoke, Please STOP! Call for help. Follow-up with: Amena Doty PA [Primary Care Provider] -
--- NOTE | 2019-09-02 10:42 | Discharge Plan ---
"Discharge Plan for SNF / [facility] - Discharge Plan And Transition Orders Problem Reviewed?: Yes Disposition: 03 SNF DC/Xfer Condition: Serious Allergies and Adverse Reactions: Allergies Allergy/AdvReac Type Severity Reaction Status Date / Time No Known Drug Allergies Allergy Verified 08/28/19 10:17 Health Concerns: Chronic liver disease - palliative care following Plan of Treatment: Cont supportive care Care Goals: Comfort Assessment: Poor prognosis - SNF / [facility] Transition Orders Admit to (Facility): [facility] Under the care of (Name): SNF provider Discharge Diagnosis: Hepatic failure due to alcoholismpoor prognosis Hyponatremiastable, chronic UTIresolved AKIstable Acute hepatic encephalopathyresolved Acute blood loss anemiaresolved Chronic anemia secondary to chronic GI bleedstable GI bleedchronic Anorexiastable Agoraphobiachronic Alcohol abusepatient declines cessation COPD with emphysemastable on room air Generalized weaknessstable, chronic, requires assistance Medicare Certification Statement: I certify that [facility] halfway care is medically necessary on a continuing basis for any of the conditions for which she/he is receiving care during hospitalization. Notify PCP of admission and forward orders to primary provider for signature. Weight on admission and: Weekly Other Notification Orders: Call PCP immediately if patient develops dyspnea, chest pain/tightness or edema. House Bowel Program: Yes Additional Bowel Program Orders: If no BM after 2 days, nurse may give M.O.M. 30ml PO PRN and/or ducolax Supp 1 HI and/or VERONICA 250mg P.O., and/or senna 1-2 tabs PO. On day 3 nurse may give repeat above order until residents constipation is resolved. Annual Influenza Vaccine (between Jan 20 and August 19): Yes Two-step PPD per [facility] [id number] or approved exception documents: Yes Medication Orders: PLEASE REFER TO THE DISCHARGE MEDICATION LIST. - Medications New Prescriptions: Magnesium Oxide [Mag Ox] 400 mg PO DAILY #30 tablet Metoprolol Tartrate [Lopressor] 12.5 mg PO DAILY #15 tablet Nicotine 7 mg Patch [Nicoderm] 1 each TOP Q24H #14 patch Vitamin [Trinatal Rx 1] 1 tab PO DAILYWM #30 tablet Spironolactone 12.5 mg PO DAILYWM #15 tablet - Diet Type: Geriatric Texture: Regular Liquids: Thin May have monthly special meal: Yes - Therapies | Activity Therapy: Evaluation | Treat if indicated: PT, OT Rehabilitation Potential: Maintain present ADL Functional Activity: No Restrictions Weight Bearing: Full Weight"
--- NOTE | 2019-09-02 11:18 | DISCHARGE SUMMARY ---
"Discharge Summary Admit Date: 08/28/19 Discharge Date: 09/02/19 Discharging Provider: Sotero Lopez MD Primary Care Provider: Amena Doty PA-C Code Status: Do Not Attempt Resuscitation Condition at Discharge: Fair Discharge Disposition: 03 SNF DC/Xfer Discharge Facility Name: [facility] - DIAGNOSES Admission Diagnoses: End-stage liver disease secondary to alcoholism Hyponatremia UTI ADRIANNE Acute hepatic encephalopathy Acute blood loss anemia GI bleeding Jaundice Anorexia Falls Agoraphobia Medical noncompliance Alcohol abuse Tobacco abuse COPD with emphysema Acute on Chronic back pain Hypertension Generalized weakness Discharge Diagnoses with Status of Each Condition: End-stage liver disease secondary to alcoholism - Fair, poor prognosis Hyponatremia - Resolved, remains chronic UTI - Resolved ADRIANNE - Resolved Acute hepatic encephalopathy - Resolved Acute blood loss anemia - Resolved GI bleeding - Chronic, stable Jaundice - Stable Anorexia - Stable Falls - Improved Agoraphobia - Chronic, stable Medical noncompliance - Unchanged Alcohol abuse - Chronic - declines cessation Tobacco abuse - Chronic, stable COPD with emphysema - Stable Acute on Chronic back pain - Resolved Hypertension - Resolved Generalized weakness - Improved - HPI History of Present Illness: Sangeeta Soto is a very ill appearing 69-year old female with a past medical history of hypertension, generalized anxiety disorder, major depressive disorder, diaphragmatic hernia, GERD, solitary nodule of lung (right lateral upper lobe), mediastinal lymphadenopathy, pulmonary sarcoidosis, psoriasis, CAD, tobacco dependence, alcoholism, and agoraphobia. She presented to the ED after having a few falls at home leading to an inability to ambulate this morning. She states that she fell twice and spent a total of 5 hours on the floor trying to scoot herself to a phone. Finally, she was able to reach a phone, and called her POA, Jaja who was at her home in about 30 minutes. She states that her legs just give out on her as her knees buckled, and that it is hard for her to drag herself across the floor to try to pull herself up with something. The patient admits to hitting her head in the back, but states she has not had confusion, headaches, or new dizziness. Patient states that she drinks alcohol on a daily basis and gets it delivered by her delivery boy named Morris. She states that she has not been aware of any jaundice, and is unsure if she has any liver diseases. She states she has had a distended abdomen for approximately the past year and that this is steadily gotten worse. She also smokes heavily greater than 1 PPD and has since age 16. She admits to a chronic cough, but notes that this has become worse in the past 1-week. Patient denies any fevers, chills dysu billie, or illness recently. Patient is not aware of any heart problems other than a mitral valve prolapse, denies SD or CHF. Patient states she lives alone at home with her 2 dogs, cat and a parrot. She admits to dripping fresh blood from her rectum, denies hemorrhoids or diverticulosis. - CONSULTS | PROCEDURES Consultations: Palliative Care Procedures: None - HOSPITAL COURSE Hospital Course: Shortly after admission, patient had a few brief anxiety episodes that were treated with as needed lorazepam. However, she did not ever fully demonstrate evidence of acute alcohol withdrawal. By day 2 of hospital stay she was seen by palliative care, at which point intervention was minimized and patient was monitored for resolution of her acute kidney injury, treatment of her UTI with antibiotics, and monitoring of her labs whilst the placement plan was finalized. Ultimately she was accepted at [facility] under the condition that she have a test for Covid-19, which was done and came back negative on 09/02/2019 at which point she was deemed to be medically safe for discharge. - ALLERGIES Allergies/Adverse Reactions: Allergies Allergy/AdvReac Type Severity Reaction Status Date / Time No Known Drug Allergies Allergy Verified 08/28/19 10:17 - MEDICATIONS Home Medications: Ambulatory Orders Medication Instructions Recorded Confirmed Escitalopram Oxalate [Lexapro] 20 mg PO DAILY 08/28/19 08/28/19 Magnesium Oxide [Mag Ox] 400 mg PO DAILY #30 tablet 09/02/19 Metoprolol Tartrate [Lopressor] 12.5 mg PO DAILY #15 tablet 09/02/19 Nicotine 7 mg Patch [Nicoderm] 1 each TOP Q24H #14 patch 09/02/19 Vitamin [Trinatal Rx 1] 1 tab PO DAILYWM #30 tablet 09/02/19 Spironolactone 12.5 mg PO DAILYWM #15 tablet 09/02/19 - PHYSICAL EXAM AT DISCHARGE General Appearance: positive: No acute distress Eyes Bilateral: negative: Conjunctivae nml (Bilateral Scleral Icterus) Neck: positive: Nml inspection, Thyroid nml, No JVD Cardiovascular: positive: Regular rate & rhythm, No murmur, No gallop Abdomen: positive: Non-tender, No organomegaly, Nml bowel sounds. negative: No distention Skin: positive: Other (Jaundice). negative: Color nml Extremities: positive: No pedal edema Neurologic/Psychiatric: positive: Oriented x3, CN's nml (2-12) - LABS Result Diagrams: 08/31/19 04:40 08/31/19 04:40 - DIAGNOSTIC IMAGING Diagnostic Imaging Results: Final report reviewed - FOLLOW UP Follow Up: Palliative Care - TIME SPENT Time Spent in Discharge (Minutes): 45"
[2019-09-02] MEDS: SPIRONOLACTONE 25 MG TABLET PO SCH (11:42)
[2019-09-02] MEDS: METOPROLOL SUCCINATE 25 MG TABLET PO SCH (11:42)
[2019-09-02 12:58] VITALS: BP 103/72
== END 2019-09-02 13:46 | DRG 432 ==
LOC: EDUNIT# → ED 09:58 → MS3 11:51 → MS2 08-29 19:00
PROVIDERS: ADMIT Nurse Practitioner; ATTEND Family Medicine Sports Medicine
PROC: 30233N1 Transfusion of Nonautologous Red Blood Cells into Peripheral Vein, Percutaneous Approach (ICD-10-PCS; principal; 2019-08-28)
DX: N30.00 Acute cystitis without hematuria (principal); K70.40 Alcoholic hepatic failure without coma; E43 Unspecified severe protein-calorie malnutrition; D64.9 Anemia, unspecified; E87.1 Hypo-osmolality and hyponatremia; D86.9 Sarcoidosis, unspecified; N39.0 Urinary tract infection, site not specified; N17.9 Acute kidney failure, unspecified; F17.200 Nicotine dependence, unspecified, uncomplicated; D62 Acute posthemorrhagic anemia; R64 Cachexia; I38 Endocarditis, valve unspecified; K92.2 Gastrointestinal hemorrhage, unspecified; I50.30 Unspecified diastolic (congestive) heart failure; I11.0 Hypertensive heart disease with heart failure; F10.10 Alcohol abuse, uncomplicated; D86.2 Sarcoidosis of lung with sarcoidosis of lymph nodes; K70.30 Alcoholic cirrhosis of liver without ascites; J43.9 Emphysema, unspecified; I27.20 Pulmonary hypertension, unspecified; F32.9 Major depressive disorder, single episode, unspecified; F40.00 Agoraphobia, unspecified; F41.9 Anxiety disorder, unspecified; E86.0 Dehydration; K52.9 Noninfective gastroenteritis and colitis, unspecified; B96.20 Unspecified Escherichia coli [E. coli] as the cause of diseases classified elsewhere; Z68.20 Body mass index [BMI] 20.0-20.9, adult; F17.210 Nicotine dependence, cigarettes, uncomplicated; I25.10 Atherosclerotic heart disease of native coronary artery without angina pectoris; I73.9 Peripheral vascular disease, unspecified; G89.29 Other chronic pain; K44.9 Diaphragmatic hernia without obstruction or gangrene; K21.9 Gastro-esophageal reflux disease without esophagitis; M79.7 Fibromyalgia; G43.909 Migraine, unspecified, not intractable, without status migrainosus; M54.9 Dorsalgia, unspecified; R53.1 Weakness; R63.0 Anorexia; G47.9 Sleep disorder, unspecified; J32.9 Chronic sinusitis, unspecified; H54.7 Unspecified visual loss; H91.90 Unspecified hearing loss, unspecified ear; R32 Unspecified urinary incontinence; R35.1 Nocturia; R33.9 Retention of urine, unspecified; M19.90 Unspecified osteoarthritis, unspecified site; L40.9 Psoriasis, unspecified; Z66 Do not resuscitate; Z51.5 Encounter for palliative care; Z91.19 Patient's noncompliance with other medical treatment and regimen; Z91.81 History of falling
CPT/HCPCS: 36415; 71045; 76770; 80053; 81001; 82140; 82272; 82274; 82550; 82977; 83605; 83690; 83735; 83880; 84100; 85014; 85018; 85025; 85610; 86850; 86900; 86901; 86920; 87086; 87181; 93306; 94640; 96374; 97162; 97166; 97530; 99223; 99285; A9270; J2060; J2185; J3411; J7040; P9016; P9047; U0002; 80306; 81003; 81599